=== PATIENT | female | born 1965 | race Hispanic/Latino ===

== ENCOUNTER 2017-10-22 06:55 | Emergency (ER) | payer OTHER ==
--- NOTE | 2017-10-22 07:33 | EKG ---
Test Date: 2017-10-22 Test Time: 07:13:45 Intermediate Teacher: GRAYSON MEASUREMENT RESULTS: Intervals: Rate: 65 RI: 148 QRSD: 86 QT: 452 QTc: 470 [place]: P: 52 RI: 148 QRS: 35 T: 52 INTERPRETIVE STATEMENTS: Normal sinus rhythm Normal ECG Compared to ECG 01/21/2000 17:22:00 No significant changes Electronically Signed On 10-22-17 07:32:16 CDT by Brent Ram
[2017-10-22 07:50] LABS: Absolute Lymphocytes (CBC) 2.4 K/uL (0.7-4.9); Absolute Monocytes 0.6 K/uL (0.1-1.3); Absolute Neutrophil 3.5 K/uL (1.8-8.0); Basophils % 1.1 % (0-1.3); Eosinophils % 11.2 % (0-4.4); Hematocrit 39.2 % (36.0-45.0); Lymphocytes % 32.3 % (15.3-44.8); MCH 32.4 pg (27.0-35.0); MCV 92.1 fL (80-100); MPV 9.2 fL (7.6-11.3); Monocytes % 7.9 % (3.3-12.3); RBC Red Blood Cell Count 4.25 M/uL (3.86-4.86)
[2017-10-22 07:55] LABS: Protime INR 1.12
[2017-10-22 08:03] LABS: ALT/SGPT 84 U/L (12-78); AST/SGOT 45 U/L (15-37); Albumin 3.7 g/dL (3.4-5.0); Alkaline Phosphatase 162 U/L (45-117); BUN Blood Urea Nitrogen 13 mg/dL (7-18); Bicarbonate 27 mmol/L (21-32); Bilirubin Direct 0.1 mg/dL (0-0.2); Bilirubin Total 0.4 mg/dL (0.2-1.0); CKMB Creatine Kinase MB < 1.0 ng/mL (0.3-3.6); Creatine Phosphokinase 47 U/L (26-192); Glucose Level 101 mg/dL (74-106); Magnesium 2.3 mg/dL (1.8-2.4); NT PRO-BNP 229 pg/mL (<125); Potassium 3.7 mmol/L (3.5-5.1); Protein, Total 7.6 g/dL (6.4-8.2); Sodium Level 139 mmol/L (136-145)
--- NOTE | 2017-10-22 08:57 | RAD REPORT ---
EXAM DESCRIPTION: RAD - Chest Single View - 10/22/2017 7:32 am CLINICAL HISTORY: CHEST PAIN Chest pain. COMPARISON: Chest Pa And Lat (2 Views) dated 10/11/2016 FINDINGS: Portable technique limits examination quality. The lungs are grossly clear. The heart is normal in size. No displaced fractures. IMPRESSION: No acute intrathoracic process suspected.
--- NOTE | 2017-10-22 09:03 | EDPHYS ---
Physician Documentation [facility] Name: Ofe Patel Age: 51 yrs Sex: Female : 1965 Arrival Date: 10/22/2017 Time: 06:57 Bed 5 Private MD: Merissa Nicholson ED Physician Viral Braga HPI: 10/22 08:00 This 51 yrs old Female presents to ER via Ambulatory with complaints of Chest pm1 Pain. 08:00 The patient or guardian reports chest pain that is located primarily in the anterior pm1 aspect of left upper chest. Onset: 3 day(s) ago, On and off for 2 years. The pain radiates to left back. Associated signs and symptoms: Pertinent negatives: abdominal pain, cough, dizziness, nausea, shortness of breath, vomiting. The chest pain is described as a pressure. Duration: The patient or guardian reports a single episode, that is still ongoing. Modifying factors: the symptoms are aggravated by deep breath, palpation of area. Severity of pain: in the emergency department the pain is actually worse. The patient has experienced similar episodes in the past, multiple times, and the symptoms today are exactly the same, Has seen many specialist and different PCP over the past 2 years and has not gotten an answer for her chest pain. Patient with constant chest pain for 3 days. Patient with left back pain that is tender on palpation. 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 - Hysterectomy sv Historical: - Allergies: 07:14 NKA; sv - Home Meds: 07:14 aripiprazole 5 mg Oral tab 1 tab once daily [Active]; [place] Thyroid 120 mg oral tab sv daily [Active]; duloxetine 60 mg Oral cpDR 1 cap once daily [Active]; Linzess 290 mcg oral cap once daily [Active]; pantoprazole 40 mg Oral TbEC 1 tab once daily [Active]; Probiotic oral oral [Active]; losartan-hydrochlorothiazide 100-12.5 mg oral tab 1 tab once daily [Active]; Avalide 150-12.5 mg oral tab 1 tab once daily [Active]; WelChol 625 mg oral tab 6 tabs once daily [Active]; diclofenac sodium 75 mg oral TbEC 1 tab 2 times per day [Active]; - PMHx: 07:14 Hormone Replacement; Hypertension; Hypothyroidism; GERD; Depression; sv - PSHx: 07:14 Hysterectomy; sv - Immunization history:: Adult Immunizations up to date. - Social history:: Smoking status: Patient/guardian denies using tobacco, Patient/guardian denies using alcohol. - Ebola Screening: : No symptoms or risks identified at this time. ROS: 08:00 Constitutional: Negative for fever, chills, and weight loss, Eyes: Negative for injury, pm1 pain, redness, and discharge, ENT: Negative for injury, pain, and discharge, Neck: Negative for injury, pain, and swelling. 08:00 Respiratory: Negative for shortness of breath, cough, wheezing, and pleuritic chest pain, Abdomen/GI: Negative for abdominal pain, nausea, vomiting, diarrhea, and constipation. 08:00 : Negative for injury, bleeding, discharge, and swelling, MS/Extremity: Negative for injury and deformity, Skin: Negative for injury, rash, and discoloration, Neuro: Negative for headache, weakness, numbness, tingling, and seizure. 08:00 Cardiovascular: Positive for chest pain, Negative for edema, orthopnea, palpitations, paroxysmal nocturnal dyspnea. 08:00 Back: Positive for of the left scapular area and left subscapular area, Pain. Exam: 07:21 Constitutional: This is a well developed, well nourished patient who is awake, alert, pm1 and in no acute distress. Head/Face: Normocephalic, atraumatic. Eyes: Pupils equal round and reactive to light, extra-ocular motions intact. Lids and lashes normal. Conjunctiva and sclera are non-icteric and not injected. Cornea within normal limits. Periorbital areas with no swelling, redness, or edema. ENT: Nares patent. No nasal discharge, no septal abnormalities noted. Tympanic membranes are normal and external auditory canals are clear. Oropharynx with no redness, swelling, or masses, exudates, or evidence of obstruction, uvula midline. Mucous membranes moist. Neck: Trachea midline, no thyromegaly or masses palpated, and no cervical lymphadenopathy. Supple, full range of motion without nuchal rigidity, or vertebral point tenderness. No Meningismus. 07:21 Cardiovascular: Regular rate and rhythm with a normal S1 and S2. No gallops, murmurs, or rubs. Normal PMI, no JVD. No pulse deficits. Respiratory: Lungs have equal breath sounds bilaterally, clear to auscultation and percussion. No rales, rhonchi or wheezes noted. No increased work of breathing, no retractions or nasal flaring. Abdomen/GI: Soft, non-tender, with normal bowel sounds. No distension or tympany. No guarding or rebound. No evidence of tenderness throughout. 07:21 Skin: Warm, dry with normal turgor. Normal color with no rashes, no lesions, and no evidence of cellulitis. MS/ Extremity: Pulses equal, no cyanosis. Neurovascular intact. Full, normal range of motion. 07:21 Chest/axilla: Inspection: normal, Palpation: tenderness, that is mild, of the mid-sternal area and left breast, that totally reproduces the patient's complaints. 07:21 NSR 07:21 Back: normal spinal alignment noted, muscle spasm, is appreciated in the left scapular area and left subscapular area. 07:21 Neuro: Orientation: is normal, Motor: is normal, moves all fours. Vital Signs: 07:00 BP 170 / 100; Pulse 86; Resp 18; Temp 98.2(O); Pulse Ox 99% on R/A; Weight 87.09 kg; sv Height 5 ft. 4 in. (162.56 cm); 08:03 BP 128 / 90; Pulse 75; Resp 10 S; Pulse Ox 97% on R/A; sg 09:00 BP 140 / 86; Pulse 62; Resp 16; Pulse Ox 99% on R/A; sg 07:00 Body Mass Index 32.96 (87.09 kg, 162.56 cm) sv MDM: 07:13 Patient medically screened. pm1 08:59 Data reviewed: vital signs, lab test result(s), EKG, radiologic studies. pm1 08:59 Differential diagnosis: acute myocardial infarction, chest wall pain, pulmonary pm1 embolus, unstable angina. 08:59 Counseling: I had a detailed discussion with the patient and/or guardian regarding: the pm1 historical points, exam findings, and any diagnostic results supporting the discharge/admit diagnosis, lab results, radiology results, the need for outpatient follow up, to return to the emergency department if symptoms worsen or persist or if there are any questions or concerns that arise at home. 10/22 07:14 Order name: Basic Metabolic Panel; Complete Time: 08:07 pm1 08/06 07:14 Order name: CBC with Diff; Complete Time: 08:07 pm1 10/22 07:14 Order name: Ckmb; Complete Time: 08:07 pm1 10/22 07:14 Order name: CPK; Complete Time: 08:07 pm1 10/22 07:14 Order name: LFT's; Complete Time: 08:07 pm1 10/22 07:14 Order name: Magnesium; Complete Time: 08:07 pm1 10/22 07:14 Order name: NT PRO-BNP; Complete Time: 08:07 pm1 10/22 07:14 Order name: PT-INR; Complete Time: 08:07 pm1 10/22 07:14 Order name: Ptt, Activated; Complete Time: 08:07 pm1 10/22 07:14 Order name: Troponin (emerg Dept Use Only); Complete Time: 08:07 pm1 10/22 07:14 Order name: XRAY Chest (1 view); Complete Time: 08:59 pm1 10/22 07:09 Order name: EKG; Complete Time: 07:10 sv 10/22 07:09 Order name: EKG - Nurse/Tech; Complete Time: 07:25 sv 10/22 07:14 Order name: Cardiac monitoring; Complete Time: 07:24 pm1 10/22 07:14 Order name: IV Saline Lock; Complete Time: 07:24 pm1 10/22 07:14 Order name: Labs collected and sent; Complete Time: 07:24 pm1 10/22 07:14 Order name: O2 Per Protocol; Complete Time: 07:24 pm1 10/22 07:14 Order name: O2 Sat Monitoring; Complete Time: 07:24 pm1 Administered Medications: 09:42 CANCELLED (Physician Discretion): Flexeril 10 mg PO once pm1 09:48 Drug: TORadol 30 mg Route: IVP; Site: right antecubital; sg 10:06 Follow up: Response: No adverse reaction; Pain is unchanged, physician notified sg 10:00 Drug: [place] 5 mg-325 mg 1 tabs Route: PO; sg Disposition: 10/22/17 09:03 Discharged to Home. Impression: Chest pain, unspecified. - Condition is Stable. - Discharge Instructions: Nonspecific Chest Pain, Chest Wall Pain. - Work release form, Medication Reconciliation Form, Thank You Letter, Antibiotic Education, Prescription Opioid Use form. - Follow up: Emergency Department; When: As needed; Reason: Worsening of condition. Follow up: Private Physician; When: 2 - 3 days; Reason: Recheck today's complaints, Continuance of care, Re-evaluation by your physician. - Problem is new. - Symptoms have improved. Addendum: 10/25/2017 19:04 Co-signature as Attending Physician, Viral murray Signatures: Dispatcher [employer] EDElla Muñoz RN RN sv Gay, Steven, RN RN sg Lam, Pin, MD MD pkl Marinas, Patrick, ACADEMY DIRECTOR ACADEMY DIRECTOR pm1 Corrections: (The following items were deleted from the chart) 10/22 09:42 09:41 Flexeril 10 mg PO once ordered. pm1 pm1 10:15 09:03 10/22/2017 09:03 Discharged to Home. Impression: Chest pain, unspecified. sg Condition is Stable. Forms are Medication Reconciliation Form, Thank You Letter, Antibiotic Education, Prescription Opioid Use. Follow up: Emergency Department; When: As needed; Reason: Worsening of condition. Follow up: Private Physician; When: 2 - 3 days; Reason: Recheck today's complaints, Continuance of care, Re-evaluation by your physician. Problem is new. Symptoms have improved. pm1
--- NOTE | 2017-10-22 09:03 | ER ---
Nurse's Notes [facility] Name: Ofe Patel Age: 51 yrs Sex: Female : 1965 Arrival Date: 10/22/2017 Time: 06:57 Bed 5 Private MD: Merissa Nicholson Diagnosis: Chest pain, unspecified Presentation: 10/22 07:00 Presenting complaint: Patient states: constant left sided chest pain with radiation to sv in between shoulder blades x 2 days. Worse with deep breathing. Denies cough. Transition of care: patient was not received from another setting of care. Onset of symptoms was October 20, 2017. Initial Sepsis Screen: Does the patient meet any 2 criteria? No. Patient's initial sepsis screen is negative. Does the patient have a suspected source of infection? No. Patient's initial sepsis screen is negative. Care prior to arrival: None. 07:00 Method Of Arrival: Ambulatory sv 07:00 Acuity: INGRID 3 sv 07:31 Risk Assessment: Do you want to hurt yourself or someone else? Patient reports no sv desire to harm self or others. 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 sv Historical: - Allergies: 07:14 NKA; sv - Home Meds: 07:14 aripiprazole 5 mg Oral tab 1 tab once daily [Active]; [place] Thyroid 120 mg oral tab sv daily [Active]; duloxetine 60 mg Oral cpDR 1 cap once daily [Active]; Linzess 290 mcg oral cap once daily [Active]; pantoprazole 40 mg Oral TbEC 1 tab once daily [Active]; Probiotic oral oral [Active]; losartan-hydrochlorothiazide 100-12.5 mg oral tab 1 tab once daily [Active]; Avalide 150-12.5 mg oral tab 1 tab once daily [Active]; WelChol 625 mg oral tab 6 tabs once daily [Active]; diclofenac sodium 75 mg oral TbEC 1 tab 2 times per day [Active]; - PMHx: 07:14 Hormone Replacement; Hypertension; Hypothyroidism; GERD; Depression; sv - PSHx: 07:14 Hysterectomy; sv - Immunization history:: Adult Immunizations up to date. - Social history:: Smoking status: Patient/guardian denies using tobacco, Patient/guardian denies using alcohol. - Ebola Screening: : No symptoms or risks identified at this time. Screenin:31 Abuse screen: Denies threats or abuse. Denies injuries from another. Nutritional sv screening: No deficits noted. Tuberculosis screening: No symptoms or risk factors identified. Fall Risk None identified. Assessment: 07:20 General: Appears in no apparent distress. comfortable, well groomed, well developed, sg well nourished, Behavior is cooperative, appropriate for age, anxious. Pain: Complains of pain in left subscapular area and left scapular area and left breast and mid-sternal area Pain does not radiate. Quality of pain is described as sharp, stabbing. Neuro: Level of Consciousness is awake, alert, obeys commands, Oriented to person, place, time, situation, Battery Charger are equal bilaterally Moves all extremities. Full function Gait is steady, Speech is normal, Facial symmetry appears normal. Cardiovascular: Heart tones S1 S2 present Capillary refill is brisk in bilateral fingers Patient's skin is warm and dry. Chest pain is located in anterior chest wall substernal area. Respiratory: Reports pain with respiration Airway is patent Respiratory effort is even, unlabored, Respiratory pattern is regular, symmetrical, Breath sounds are clear. GI: Abdomen is round non-distended, Bowel sounds present X 4 quads. : No signs and/or symptoms were reported regarding the genitourinary system. EENT: No signs and/or symptoms were reported regarding the EENT system. Derm: Skin is intact, is healthy with good turgor, Skin is pink, warm \T\ dry. Musculoskeletal: Circulation, motion, and sensation intact. Range of motion: intact in all extremities, Swelling absent. 08:20 Reassessment: Patient appears in no apparent distress at this time. Patient and/or sg family updated on plan of care and expected duration. Pain level reassessed. Patient is alert, oriented x 3, equal unlabored respirations, skin warm/dry/pink. Patient states symptoms have not improved. 09:20 Reassessment: Patient appears in no apparent distress at this time. Patient and/or sg family updated on plan of care and expected duration. Pain level reassessed. Patient is alert, oriented x 3, equal unlabored respirations, skin warm/dry/pink. Patient states symptoms have not improved. 10:20 Reassessment: Patient appears in no apparent distress at this time. Patient and/or sg family updated on plan of care and expected duration. Pain level reassessed. Patient is alert, oriented x 3, equal unlabored respirations, skin warm/dry/pink. pt home medications discovered left in room on counter, meds given to Deborah MORELAND Charge Nurse. Vital Signs: 07:00 BP 170 / 100; Pulse 86; Resp 18; Temp 98.2(O); Pulse Ox 99% on R/A; Weight 87.09 kg; sv Height 5 ft. 4 in. (162.56 cm); 08:03 BP 128 / 90; Pulse 75; Resp 10 S; Pulse Ox 97% on R/A; sg 09:00 BP 140 / 86; Pulse 62; Resp 16; Pulse Ox 99% on R/A; sg 07:00 Body Mass Index 32.96 (87.09 kg, 162.56 cm) sv ED Course: 06:57 Patient arrived in ED. am2 06:57 Merissa Nicholson MD is Private Physician. am2 07:06 Arm band placed on right wrist. Patient placed in an exam room, on a stretcher. sv 07:11 Triage completed. sv 07:13 Len Barahona NP is PHCP. pm1 07:13 Viral Braga MD is Attending Physician. pm1 07:20 school lunch monitor on. Pulse ox on. NIBP on. sg 07:20 Initial lab(s) drawn, by me, sent to lab. Inserted saline lock: 20 gauge in right sg antecubital area, using aseptic technique. Blood collected. Patient maintains SpO2 saturation greater than 95% on room air. 07:20 No provider procedures requiring assistance completed. sg 07:29 X-ray completed. Portable x-ray completed in exam room. Patient tolerated procedure kw well. 07:29 XRAY Chest (1 view) In Process Unspecified. EDMS 07:31 Dwaine Vargas, RN is Primary Nurse. sg 07:31 Patient has correct armband on for positive identification. Placed in gown. Bed in low sv position. Door closed. Head of bed elevated. 08:19 EKG done, by apprentice instrument technician. reviewed by Len Barahona NP. at1 10:15 IV discontinued, intact, bleeding controlled, No redness/swelling at site. Pressure sg dressing applied. Administered Medications: 09:42 CANCELLED (Physician Discretion): Flexeril 10 mg PO once pm1 09:48 Drug: TORadol 30 mg Route: IVP; Site: right antecubital; sg 10:06 Follow up: Response: No adverse reaction; Pain is unchanged, physician notified sg 10:00 Drug: [place] 5 mg-325 mg 1 tabs Route: PO; sg Outcome: 09:03 Discharge ordered by . pm1 10:10 Discharged to home ambulatory, with family. sg 10:10 Condition: stable 10:10 Discharge instructions given to patient, Instructed on discharge instructions, follow up and referral plans. safety practices, Demonstrated understanding of instructions, follow-up care. 10:15 Patient left the ED. sg Signatures: Dispatcher [employer] EDElla Muñoz RN RN sv Gay, Steven, RN RN sg Tanya Arrington Amanda, timber framer EKG Tat1 Len Barahona NP SPLASH LINE OPERATOR pm1 Rosanna Correa am2
[2017-10-22] MEDS ORDERED: KETOROLAC 30 MG/ML INJ ONE (09:47)
[2017-10-22] MEDS ORDERED: HYDROCODONE/APAP 5/325 MG TAB ONE (10:07)
[2017-10-22 10:19] VITALS: TEMP 98.2
[2017-10-22 10:21] VITALS: BP 140/86; O2SAT 99
== END 2017-10-22 10:15 | disposition home or self-care (01) ==
LOC: ER 06:55
DX: R07.9 Chest pain, unspecified (principal); I10 Essential (primary) hypertension; E03.9 Hypothyroidism, unspecified; K21.9 Gastro-esophageal reflux disease without esophagitis
CPT/HCPCS: 36415; 71045; 80048; 80076; 82550; 82553; 83735; 83880; 84484; 85025; 85610; 85730; 93005; 96374; 99285

== ENCOUNTER 2017-12-10 08:10 | Day surgery (SDC) | payer OTHER ==
--- NOTE | 2017-12-06 14:48 | RAD REPORT ---
EXAM DESCRIPTION: Betina Hester (2 Views)12/06/2017 2:41 pm CLINICAL HISTORY: Hypertension/preop exam for hernia surgery COMPARISON: August 2017 FINDINGS: The lungs appear clear of acute infiltrate. The heart is normal size IMPRESSION: No acute abnormalities displayed
[2017-12-06 15:24] LABS: Absolute Lymphocytes (CBC) 1.9 K/uL (0.7-4.9); Absolute Monocytes 0.7 K/uL (0.1-1.3); Absolute Neutrophil 3.7 K/uL (1.8-8.0); Basophils % 0.7 % (0-1.3); Eosinophils % 5.8 % (0-4.4); Hematocrit 34.3 % (36.0-45.0); Lymphocytes % 27.7 % (15.3-44.8); MCH 31.7 pg (27.0-35.0); MCV 90.9 fL (80-100); MPV 9.2 fL (7.6-11.3); Monocytes % 10.5 % (3.3-12.3); RBC Red Blood Cell Count 3.77 M/uL (3.86-4.86)
[2017-12-06 15:34] LABS: Potassium 4.1 mmol/L (3.5-5.1)
--- NOTE | 2017-12-07 06:56 | EKG ---
Test Date: 2017-12-06 Test Time: 14:51:58 Lap Layer: LUPILLO MEASUREMENT RESULTS: Intervals: Rate: 72 MD: 148 QRSD: 88 QT: 418 QTc: 457 [place]: P: 61 MD: 148 QRS: 39 T: 37 INTERPRETIVE STATEMENTS: Normal sinus rhythm Normal ECG Compared to ECG 10/22/2017 07:13:45 No significant changes Electronically Signed On 12-07-17 06:54:39 CDT by Azam El
[2017-12-10] MEDS ORDERED: LIDOCAINE 2% MPF 5 ML VIAL ONE (08:30)
[2017-12-10] MEDS ORDERED: ROCURONIUM 50 MG/5 ML VIAL IV ONE (08:30)
[2017-12-10] MEDS ORDERED: FENTANYL CITR 100 MCG/2 ML ONE (08:30)
[2017-12-10] MEDS ORDERED: MIDAZOLAM HCL 2 MG/2 ML INJ ONE (08:30)
[2017-12-10] MEDS ORDERED: PROPOFOL 200 MG/20 ML VIAL IV ONE (08:30)
[2017-12-10] MEDS ORDERED: Ringers Lactate 1,000 ML IV ONE (08:40)
[2017-12-10] MEDS ORDERED: CEFAZOLIN/SWI 1gm 1 GM/10 ML SYR ONE (08:40)
[2017-12-10] MEDS ORDERED: ONDANSETRON HCL 40 MG/20 ML VIAL ONE (09:41)
[2017-12-10] MEDS ORDERED: GLYCOPYRROLATE 0.2 MG/ML SYR ONE (10:14)
[2017-12-10] MEDS ORDERED: KETOROLAC 30 MG/ML INJ ONE (10:14)
[2017-12-10] MEDS ORDERED: NEOSTIGMINE 1 MG/ML -5 ML SYRINGE ONE (10:15)
[2017-12-10] MEDS: MORPHINE 4 MG/ML SYR ONE ×2 (10:40→10:44)
--- NOTE | 2017-12-10 10:49 | P.BOP ---
Preoperative diagnosis: incarcerated tender ventral hernia Postoperative diagnosis: same Primary procedure: Open repair of incarcerated tender ventral hernia Deputy Sheriff Lieutenant: Sara Weathers) Estimated blood loss: < 10cc Specimen: hernia sac Findings: umbilical and ventral hernia repair as one defect Anesthesia: General Complications: None Transferred to: Recovery Room Condition: Good
[2017-12-10] MEDS ORDERED: MEPERIDINE HCL 50 MG/ML AMP ONE (10:53)
[2017-12-10] MEDS ORDERED: CODEINE 30MG/APAP 300MG TAB ONE (11:45)
[2017-12-10] MEDS ORDERED: CYCLOPENTOLATE 1% OPTH 2 ML ONE (12:18)
[2017-12-10] MEDS ORDERED: BUPIVACAINE 0.25% PF 10 ML VIAL ONE (12:18)
[2017-12-10] MEDS ORDERED: TETRACAINE HCL 0.5% 2ML OPTH ONE (12:19)
[2017-12-10] MEDS ORDERED: PHENYLEPHRINE 10% OPTH 5ML ONE (12:19)
[2017-12-10] MEDS ORDERED: NA CHLORIDE 0.9% 0 ML ONE (12:19)
[2017-12-10 15:33] VITALS: BP 103/65; TEMP 98; O2SAT 98
--- NOTE | 2017-12-10 21:30 | DS ---
Date of Discharge: 12/10/2017 Diagnosis: Incarcerated tender ventral hernia. Procedure: Open repair of an incarcerated tender ventral hernia. Disposition: Home. Activity: As tolerated. No heavy lifting. Followup: Follow up in my office in 1 week. Call for appointment on [phone]. Keep the area dry fo r 48 hours, then may shower. Keep Steri-Strips intact. ESSENCE/ANUJA Voice ID: [id number] Report ID: [id number]
--- NOTE | 2017-12-10 22:24 | OP ---
Date of Procedure: 12/10/2017 Surgeon: Yasmany Mcgowan MD Chocolate Packer: DOT Ureña. Preoperative Diagnosis: Incarcerated tender ventral hernia. Postoperative Diagnosis: Incarcerated tender ventral hernia. Procedure: Open repair of an incarcerated tender ventral hernia. Specimen: Hernia sac. Findings: The patient has 2 hernias, umbilical and ventral hernia just cephalad to the previous one. All of them were put in one defect and closed as one defect. Anesthesia: General plus local. Indications: This is a case of a 52-year-old patient who comes to us with an incarcerated ventral he rnia. Benefits, alternatives, and risks of repair fully explained which include but are not limited to infection, bleeding, damage to adjacent structures, anesthesia complication, recurrence, [place], and e earnest . She also understands this may not relieve her symptoms. She might need more than one cam gical intervention. The pros and cons of mesh placement were also discussed with her in case needs t o be done. She understands the importance of losing weight and no heavy lifting. She signed a conse nt. Description Of Procedure: The patient was brought to the operating room, placed in supine position. Anesthesia was done without complication. Abdominal area was prepped and draped in usual sterile fa shion. A ventral incision was made on the skin. Incision was carried down to fascia. We noticed tw o defects, one ventral, one umbilical. In between, there is a bridge of fascia which still is not st reuben as needed so we proceeded to make this into one defect. Hernia sac was removed. The omentum wa s released and then eventually reduced, re-inspected making sure it was viable and no bleeding. The fascia edges were cleaned. We noticed that we can close this without tension and without having to u se mesh, so we proceeded to close the defects with #1 Prolene in a [id number] fashion multiple t imes. The area was irrigated. A 3-0 chromic was used for the subcutaneous incision and then subcuti cular closure with 3-0 chromic and Steri-Strips on top. Sponge count and instrument counts were brayan ect. The patient tolerated the procedure well. [facility] ESSENCE/ANUJA Voice ID: [id number] Report ID: [id number]
== END 2017-12-10 13:45 | disposition home or self-care (01) ==
LOC: OR 08:10
PROVIDERS: ATTEND Surgery
PROC: 0WQF0ZZ Repair Abdominal Wall, Open Approach (ICD-10-PCS; principal; 2017-12-10 10:00)
DX: K43.6 Other and unspecified ventral hernia with obstruction, without gangrene (principal); K42.9 Umbilical hernia without obstruction or gangrene; I10 Essential (primary) hypertension; E07.9 Disorder of thyroid, unspecified; Z85.9 Personal history of malignant neoplasm, unspecified; Z90.710 Acquired absence of both cervix and uterus; Z82.49 Family history of ischemic heart disease and other diseases of the circulatory system; Z83.3 Family history of diabetes mellitus; Z82.3 Family history of stroke
CPT/HCPCS: 36415; 71046; 80048; 85025; 88302; 93005; J0690; J2175; J2250; J2405; J2710; J3010

== ENCOUNTER 2018-12-30 13:29 | Emergency (ER) | payer BC ==
[2018-12-30] MEDS ORDERED: LORAZEPAM 1 MG TABLET ONE (14:32)
--- NOTE | 2018-12-30 15:07 | EDPHYS ---
Physician Documentation [facility] Name: Ofe Patel Age: 53 yrs Sex: Female : 1965 Arrival Date: 12/30/2018 Time: 13:32 Bed 25 Private MD: ED Physician Rena Garrido HPI: 12/30 14:54 This 53 yrs old Female presents to ER via EMS with complaints of Dizziness. ma2 14:54 The patient presents with dizziness, feeling faint. Onset: The symptoms/episode ma2 began/occurred gradually. 15:04 Associated signs and symptoms: Pertinent positives: anxius , Pertinent negatives: ma2 ataxia, combativeness, diaphoresis, head injury. Severity of symptoms: At their worst the symptoms were very mild in the emergency department the symptoms have resolved. The patient has not experienced similar symptoms in the past. had anxiety while talking to her clinical informatics educator about a surgery, syx resolved . 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 - Social history:: Smoking status: Patient/guardian denies using tobacco, Patient/guardian denies using alcohol, street drugs, The patient lives with family. - Ebola Screening: : Patient denies travel to an Ebola-affected area in the 21 days before illness onset. - Family history:: not pertinent. ROS: 15:04 Constitutional: Negative for fever, chills, and weight loss. ma2 15:04 All other systems are negative. Exam: 15:04 Constitutional: This is a well developed, well nourished patient who is awake, alert, ma2 and in no acute distress. Head/Face: Normocephalic, atraumatic. Eyes: Pupils equal round and reactive to light, extra-ocular motions intact. Lids and lashes normal. Conjunctiva and sclera are non-icteric and not injected. Cornea within normal limits. Periorbital areas with no swelling, redness, or edema. ENT: Nares patent. No nasal discharge, no septal abnormalities noted. Tympanic membranes are normal and external auditory canals are clear. Oropharynx with no redness, swelling, or masses, exudates, or evidence of obstruction, uvula midline. Mucous membranes moist. Neck: Trachea midline, no thyromegaly or masses palpated, and no cervical lymphadenopathy. Supple, full range of motion without nuchal rigidity, or vertebral point tenderness. No Meningismus. Chest/axilla: Normal chest wall appearance and motion. Nontender with no deformity. No lesions are appreciated. Cardiovascular: Regular rate and rhythm with a normal S1 and S2. No gallops, murmurs, or rubs. Normal PMI, no JVD. No pulse deficits. Respiratory: Lungs have equal breath sounds bilaterally, clear to auscultation and percussion. No rales, rhonchi or wheezes noted. No increased work of breathing, no retractions or nasal flaring. Abdomen/GI: Soft, non-tender, with normal bowel sounds. No distension or tympany. No guarding or rebound. No evidence of tenderness throughout. Back: No spinal tenderness. No costovertebral tenderness. Full range of motion. Skin: Warm, dry with normal turgor. Normal color with no rashes, no lesions, and no evidence of cellulitis. MS/ Extremity: Pulses equal, no cyanosis. Neurovascular intact. Full, normal range of motion. Neuro: Awake and alert, GCS 15, oriented to person, place, time, and situation. Cranial nerves II-XII grossly intact. Motor strength 5/5 in all extremities. Sensory grossly intact. Cerebellar exam normal. Normal gait. Vital Signs: 13:39 BP 134 / 77; Pulse 64; Resp 18; Pulse Ox 96% on R/A; aj1 14:54 BP 120 / 76; Pulse 70; Resp 16; Temp 98.0(O); Pulse Ox 100% ; lt1 15:28 BP 125 / 86; Pulse 74; Resp 18; Pulse Ox 100% on R/A; aj1 MDM: 13:47 Patient medically screened. ma2 15:04 Differential diagnosis: anxiety reaction l;ikely, unlikey arrythmia or electrolyte ma2 abnormality or dehydration . Data reviewed: vital signs, nurses notes. Counseling: I had a detailed discussion with the patient and/or guardian regarding: the historical points, exam findings, and any diagnostic results supporting the discharge/admit diagnosis, the presence of at least one elevated blood pressure reading (>120/80) during this emergency department visit, the need for outpatient follow up. Response to treatment: the patient's symptoms have markedly improved after treatment. 12/30 14:18 Order name: EKG - Nurse/Tech; Complete Time: 14:42 ma2 Administered Medications: 14:36 Drug: Ativan 1 mg Route: PO; aj 15:29 Follow up: Response: No adverse reaction aj1 Disposition: 12/30/18 15:06 Discharged to Home. Impression: Anxiety disorder, unspecified. - Condition is Stable. - Discharge Instructions: Generalized Anxiety Disorder. - Prescriptions for Ativan 0.5 mg Oral Tablet - take 1 tablet by ORAL route every 8 hours As needed; 20 tablet. - Medication Reconciliation Form, Thank You Letter, Antibiotic Education, Prescription Opioid Use form. - Follow up: Private Physician; When: Tomorrow; Reason: Continuance of care. Signatures: Fabiola Hill RN RN aj1 Rena Garrido MD MD ma2 Corrections: (The following items were deleted from the chart) 16:09 15:06 12/30/2018 15:06 Discharged to Home. Impression: Anxiety disorder, unspecified. aj1 Condition is Stable. Forms are Medication Reconciliation Form, Thank You Letter, Antibiotic Education, Prescription Opioid Use. Follow up: Private Physician; When: Tomorrow; Reason: Continuance of care. ma2
--- NOTE | 2018-12-30 15:07 | ER ---
Nurse's Notes [facility] Name: Ofe Patel Age: 53 yrs Sex: Female : 1965 Arrival Date: 12/30/2018 Time: 13:32 Bed 25 Private MD: Diagnosis: Anxiety disorder, unspecified Presentation: 12/30 13:32 Presenting complaint: EMS states: Patient was at a pre-op appointment at Dr. Schwartz's aj office when she started hyperventilating, feeling dizzy, and nauseous. Office staff report that the patient was hypotensive at that time, but BP was normal upon EMS arrival, and is 137/77 upon arrival to ER. Orthostatic vital signs were obtained by EMS and were negative. FSBS 122. Patient reports feeling better at this time, but she is still having some dizziness. Transition of care: patient was not received from another setting of care. Onset of symptoms was December 30, 2018. Risk Assessment: Do you want to hurt yourself or someone else? Patient reports no desire to harm self or others. Initial Sepsis Screen: Does the patient meet any 2 criteria? No. Patient's initial sepsis screen is negative. Does the patient have a suspected source of infection? No. Patient's initial sepsis screen is negative. Care prior to arrival: None. 13:32 Method Of Arrival: EMS: [place] [id number] 13:32 Acuity: INGRID 3 aj1 Triage Assessment: 13:39 General: Appears in no apparent distress. comfortable, Behavior is cooperative, aj1 appropriate for age, anxious. Pain: Denies pain. 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 - Social history:: Smoking status: Patient/guardian denies using tobacco, Patient/guardian denies using alcohol, street drugs, The patient lives with family. - Ebola Screening: : Patient denies travel to an Ebola-affected area in the 21 days before illness onset. - Family history:: not pertinent. Screenin:30 Abuse screen: Denies threats or abuse. Denies injuries from another. Nutritional aj1 screening: No deficits noted. Tuberculosis screening: No symptoms or risk factors identified. 15:29 Fall Risk None identified. aj1 Assessment: 13:30 General: Appears in no apparent distress. comfortable, Behavior is calm, cooperative, aj1 appropriate for age. Pain: Denies pain. Neuro: Level of Consciousness is awake, alert, obeys commands, Oriented to person, place, time, situation, Moves all extremities. Full function Speech is normal, Facial symmetry appears normal, Reports dizziness. Cardiovascular: Patient's skin is warm and dry. Respiratory: Airway is patent Respiratory effort is even, unlabored, Respiratory pattern is regular, symmetrical. GI: No signs and/or symptoms were reported involving the gastrointestinal system. : No signs and/or symptoms were reported regarding the genitourinary system. EENT: No signs and/or symptoms were reported regarding the EENT system. Derm: No signs and/or symptoms reported regarding the dermatologic system. Skin is pink, warm \T\ dry. normal. Musculoskeletal: No signs and/or symptoms reported regarding the musculoskeletal system. Circulation, motion, and sensation intact. 14:30 Reassessment: Patient appears in no apparent distress at this time. No changes from aj1 previously documented assessment. Patient and/or family updated on plan of care and expected duration. Pain level reassessed. Patient is alert, oriented x 3, equal unlabored respirations, skin warm/dry/pink. 15:28 Reassessment: Patient appears in no apparent distress at this time. No changes from aj1 previously documented assessment. Patient and/or family updated on plan of care and expected duration. Pain level reassessed. Patient is alert, oriented x 3, equal unlabored respirations, skin warm/dry/pink. Vital Signs: 13:39 BP 134 / 77; Pulse 64; Resp 18; Pulse Ox 96% on R/A; aj1 14:54 BP 120 / 76; Pulse 70; Resp 16; Temp 98.0(O); Pulse Ox 100% ; lt1 15:28 BP 125 / 86; Pulse 74; Resp 18; Pulse Ox 100% on R/A; aj1 ED Course: 13:30 Patient has correct armband on for positive identification. Bed in low position. Call aj1 light in reach. 13:30 No provider procedures requiring assistance completed. aj1 13:32 Patient arrived in ED. aj1 13:35 Triage completed. aj1 13:39 Arm band placed on. aj1 13:47 Rena Garrido MD is Attending Physician. ma2 14:25 Fabiola Hill RN is Primary Nurse. aj1 14:44 EKG done, by psychology technician. reviewed by Rena Garrido MD. 3 15:29 Patient did not have IV access during this emergency room visit. aj1 Administered Medications: 14:36 Drug: Ativan 1 mg Route: PO; aj1 15:29 Follow up: Response: No adverse reaction aj Outcome: 15:06 Discharge ordered by . ks2 16:08 Discharged to home ambulatory. aj1 16:08 Condition: good 16:08 Discharge instructions given to patient, Instructed on discharge instructions, follow up and referral plans. no drinking with medication, no driving heavy equipment, medication usage, Demonstrated understanding of instructions, follow-up care, medications, Prescriptions given X 1. 16:09 Patient left the ED. aj1 Signatures: Fabiola Hill, RN RN aj1 Rena Garrido MD MD ks2 Capri Hazel 3 Corinna العلي [facility]
[2018-12-30 16:18] VITALS: TEMP 98; O2SAT 100
[2018-12-30 16:21] VITALS: BP 125/86
--- NOTE | 2018-12-31 05:33 | EKG ---
Test Date: 2018-12-30 Test Time: 14:38:56 Webbing Inspector: IMCHELET MEASUREMENT RESULTS: Intervals: Rate: 62 IA: 148 QRSD: 90 QT: 434 QTc: 440 Simpson: P: 52 IA: 148 QRS: 48 T: 49 INTERPRETIVE STATEMENTS: Normal sinus rhythm Nonspecific T wave abnormality Abnormal ECG Compared to ECG 12/06/2017 14:51:58 T-wave abnormality now present Electronically Signed On 12-31-18 05:32:15 CDT by Brent Ram
== END 2018-12-30 16:09 | disposition home or self-care (01) ==
LOC: ER 13:29
DX: F41.9 Anxiety disorder, unspecified (principal); I10 Essential (primary) hypertension; E03.9 Hypothyroidism, unspecified; F32.9 Major depressive disorder, single episode, unspecified
CPT/HCPCS: 93005; 99284

== ENCOUNTER 2019-03-04 11:10 | Day surgery (SDC) | payer BC ==
[2019-02-25 14:48] LABS: Absolute Lymphocytes (CBC) 2.2 K/uL (0.7-4.9); Basophils % 1.2 % (0-1.3); Hematocrit 37.5 % (36.0-45.0); Lymphocytes % 21.2 % (15.3-44.8); MPV 9.5 fL (7.6-11.3); RBC Red Blood Cell Count 4.11 M/uL (3.86-4.86)
[2019-02-25 14:53] LABS: Urine Appearance CLEAR; Urine Bilirubin NEGATIVE (NEG); Urine Blood NEGATIVE (NEG); Urine Color YELLOW; Urine Glucose NEGATIVE (NEG); Urine Protein NEGATIVE (NEG); Urine Specific Gravity 1.015 (1.005-1.030); Urine Urobilinogen 0.2 mg/dL (0.2-1.0); Urine pH 5.5 (5.0-7.0)
[2019-02-25 14:56] LABS: Urine Microscopic Reflex NO UMIC
--- OUTSIDE RECORDS SUMMARY | 2019-03-04 11:12 | XMS REPORT ---
:1965 [facility] Address [address] [place] [address] Dr. Hidalgo [address] [place] [id number] Care Team Providers Name Role Phone Unavailable Unavailable Unavailable Problems This patient has no known problems. Allergies, Adverse Reactions, Alerts This patient has no known allergies or adverse reactions. Medications This patient has no known medications.
[2019-03-04] MEDS ORDERED: SCOPOLAMINE HYDROBROMIDE PATCH TD ONE (11:28)
[2019-03-04] MEDS ORDERED: Ringers Lactate 1,000 ML IV ONE ×4 (11:29→16:26)
[2019-03-04] MEDS ORDERED: propofoL 200 MG/20 ML VIAL IV ONE (13:14)
[2019-03-04] MEDS ORDERED: LIDOCAINE 2% MPF 5 ML VIAL ONE (13:14)
[2019-03-04] MEDS ORDERED: FENTANYL CITR 250 MCG/5 ML ONE (13:14)
[2019-03-04] MEDS ORDERED: dexAMETHasone 10 MG/ML VIAL ONE (13:14)
[2019-03-04] MEDS ORDERED: MIDAZOLAM HCL 2 MG/2 ML INJ ONE (13:14)
[2019-03-04] MEDS ORDERED: ROCURONIUM 50 MG/5 ML VIAL IV ONE (13:17)
[2019-03-04] MEDS: BUPIVACAINE 0.25% PF 30 ML VIAL ONE ×2 (13:18→13:56)
[2019-03-04] MEDS ORDERED: GLYCOPYRROLATE 0.2 MG/ML SYR ONE (14:59)
[2019-03-04] MEDS ORDERED: ONDANSETRON 4 MG/2 ML VIAL ONE (14:59)
[2019-03-04] MEDS ORDERED: NEOSTIGMINE 1 MG/ML -10 ML VIAL ONE (14:59)
[2019-03-04] MEDS ORDERED: KETOROLAC 30 MG/ML INJ ONE (15:00)
[2019-03-04] MEDS: HYDROMORPHONE HCL 1 MG/ML INJ ONE ×2 (15:46→15:51)
[2019-03-04] MEDS: HYDROMORPHONE HCL 2 MG/ML inj ONE ×4 (15:59→16:15)
[2019-03-04] MEDS ORDERED: HYDROCODONE/APAP 5/325 MG TAB ONE (17:08)
[2019-03-04 17:54] VITALS: BP 130/56; TEMP 98.2; O2SAT 98
--- NOTE | 2019-03-05 06:23 | OP ---
Date of Procedure: 03/04/2019 Surgeon: Cheyenne Schwartz MD Credit Relationship Manager: Shannan Storey. Preoperative Diagnoses: Pelvic pain, mixed urinary incontinence, especially urgency and urgency inco ntinence. Postoperative Diagnoses: Pelvic pain, mixed urinary incontinence, especially urgency and urgency inc ontinence, and bowel adhesions. Procedures Performed: Diagnostic laparoscopy, bilateral salpingo-oophorectomy, extensive lysis of ad hesions which took more than 65% of the case, just 2/3rds, and then cystoscopy. Anesthesia: General. Specimens: Bilateral ovaries. Complications: No complications. Drains: No drains. Condition: Patient's condition is stable. Findings: Extensive bowel adhesions, sigmoid to the left lower quadrant, and left ovary and right ce cum to the anterior abdominal wall, right lateral wall. Appendix normal. No endometriosis found in the entire pelvic cavity on closed survey. Description Of Procedure: After informed consent was verified in the preop area, patient was brought to the OR, placed in supine fashion on the operating table. General anesthesia was given. Placed i n dorsal lithotomy position. No antibiotics were given. Pelvic exam was performed. No adnexal mass es were palpable. Abdomen prepped with ChloraPrep. Vulva, vagina, and perineum with Betadine, drape d in a sterile fashion. Arms were tucked by the side. SCDs were started. Time-out was done. Proce dure was then started. Constantino was placed to drain the bladder. A sponge stick was placed in the vagi na. This area was draped. A 1.5 cm supraumbilical incision was made with a scalpel. The patient gates d history of an umbilical hernia that was repaired with mesh and total laparoscopic hysterectomy with bilateral salpingectomy. So, due to the presence of the umbilical hernia mesh, an incision was made about 5 cm superior to the upper incision for the hernia repair. Fascia was incised directly, tagge d with 0 Vicryl sutures and peritoneum entered bluntly, S-retractors placed. Veto introduced. Sit e of entry was checked. Prior to this, preperitoneal insufflation was noted since the trocar was not advanced after Veto was advanced into the preperitoneal cavity. This was replaced after realizing this. Then, insufflation was unremarkable. Visualization was unremarkable as well. Upper abdomina l surface area was clear. No adhesions. Patient is status post hernia repair. No adhesions at the umbilicus as well. Five left lower quadrant and right lower quadrant suprapubic ports were then plac ed under direct vision after injecting the skin and fascia with Marcaine. The bowel adhesions were d ense and omental adhesions to the anterior abdominal wall as well on the left side. So, first the om ental adhesions were taken down with sharp dissection. Then, the bowel adhesions were taken down all the way from the natural attachment of the sigmoid to the level of the mid pelvis to the sidewall. Once this was freed up, then the left ovary was visualized, it was concealed underneath these adhesio ns, before they were taken down. Then, the peritoneum tethering the inferior aspect of the ovary was opened up. The external and inte rnal iliacs and the ureter were all visualized and the peritoneal dissection was performed to isolate the pedicle of the infundibulopelvic ligament and then taken down with LigaSure from the operative s maggy. Adhesions were taken down with sharp dissection. Once all these were taken down and the ovary was well visualized, there was no evidence of any endometriosis or abnormality. However, on discussi on with the patient in the office, she preferred to have 1 ovary left behind. Unless there was a pro blem with the ovary or if no other pathology was found, we decided that she should have right ovarian preservation. However, since there was no other pathology found other than the adhesions themselves , which were more dense on the left side where she has increased pain, I did not believe that leaving the right ovary in this patient with multiple adhesions would be the right thing, especially since s he is 53 and perimenopausal. I called her , Nicolas and spoke to him regarding this patient. He did relate to me the message that the patient definitely would like to have her both ovaries removed and that they had discussed this before the surgery and after my discussion in the office. So, once I had discussed this with her , I also offered the option of coming back another time to perfo rm this if there was any uncertainty about her wishes. He clearly decisively tell me that she would desire to have both ovaries removed in this scenario. So proceeded with removing the right ovary, wh ich was isolated on into IP by dissecting the lateral part of the broad ligament and isolating on the IP, and then taken down with the help of the LigaSure. The specimens were retrieved through the umb ilical port. No tubes were found. All the bowel adhesions were visualized again. No evidence of an y bleeding or any trauma to the adjacent bowel or lateral pelvic sidewall structures. Scope was polo bridget. After thorough irrigation and suction were performed, the trocars were removed under direct vis ion and local incisions of the fascia and skin were injected with Marcaine again. Then, the gas was desufflated. Fascia at the umbilicus closed with 0 Vicryl tag sutures, tied to each other and subcut aneous 0 Vicryl simple stitch followed by running subcuticular 4-0 Vicryl closure at the umbilical in cision and all the rest of the 3 with interrupted 4-0 Vicryl. Constantino was removed. The vaginal sponge was removed. Cystoscopy was performed with a 30-degree lens n ormal saline. The entire bladder was visualized with bladder base, dome, lateral sidewalls. No evid ence of any diverticula or tumors or stones. Slight trabeculations were seen. Urethroscopy was perf ormed with a 30-degree lens as well and there was no evidence of any diverticula or tumors. Scope wa s removed. Bladder was drained and instrument, needle, and sponge counts were correct at the end of the case. Patient tolerated the procedure well. She was recovered from the OR and taken to PACU in stable condition. She will be discharged home today with [place] 15 tablets, ibuprofen okay for 2 to 3 days for pain control. She has a 1-week followup with me. ROGER/ANUJA Voice ID: [id number] Report ID: [id number]
== END 2019-03-04 17:56 | disposition home or self-care (01) ==
LOC: OR 11:10
PROVIDERS: ATTEND Obstetrics & Gynecology
PROC: 0UT74ZZ Resection of Bilateral Fallopian Tubes, Percutaneous Endoscopic Approach (ICD-10-PCS; 2019-03-04)
PROC: 0UT24ZZ Resection of Bilateral Ovaries, Percutaneous Endoscopic Approach (ICD-10-PCS; principal; 2019-03-04 13:30)
DX: R10.2 Pelvic and perineal pain (principal); N39.41 Urge incontinence; K66.0 Peritoneal adhesions (postprocedural) (postinfection)
CPT/HCPCS: 85025; 36415; 86900; 86850; 86901; 88305; 81003; 58661; J2704; J2710; J2250; J1170 ×2; J3010; J1100; J7120 ×4; J2405

== ENCOUNTER 2019-05-29 13:41 | Emergency (ER) | payer BC ==
--- OUTSIDE RECORDS SUMMARY | 2019-05-29 13:44 | XMS REPORT ---
:1965 [facility] Address [address] [place] [address] Dr. Hidalgo [address] [place] [address] Care Team Providers Name Role Phone Unavailable Unavailable Unavailable Problems This patient has no known problems. Allergies, Adverse Reactions, Alerts This patient has no known allergies or adverse reactions. Medications This patient has no known medications.
[2019-05-29] MEDS ORDERED: ASPIRIN 81 MG CHEWABLE TABLET ONE (14:28)
[2019-05-29] MEDS ORDERED: AMLODIPINE 5 MG TAB ONE (14:29)
[2019-05-29 14:31] LABS: Absolute Lymphocytes (CBC) 2.4 K/uL (0.7-4.9); Basophils % 1.2 % (0-1.3); Hematocrit 40.9 % (36.0-45.0); Lymphocytes % 27.9 % (15.3-44.8); MPV 9.2 fL (7.6-11.3); Protime INR 1.17; RBC Red Blood Cell Count 4.53 M/uL (3.86-4.86)
--- NOTE | 2019-05-29 14:41 | RAD REPORT ---
EXAM DESCRIPTION: [facility] Single View05/29/2019 2:33 pm CLINICAL HISTORY: Chest pain COMPARISON: 2017 FINDINGS: The lungs appear clear of acute infiltrate. The heart is normal size IMPRESSION: No acute abnormalities displayed
[2019-05-29 14:55] LABS: ALT/SGPT 72 U/L (12-78); AST/SGOT 68 U/L (15-37); Albumin 3.8 g/dL (3.4-5.0); Alkaline Phosphatase 170 U/L (45-117); BUN Blood Urea Nitrogen 11 mg/dL (7-18); Bicarbonate 27 mmol/L (21-32); Bilirubin Direct 0.1 mg/dL (0-0.2); Bilirubin Total 0.5 mg/dL (0.2-1.0); Glucose Level 107 mg/dL (74-106); Magnesium 2.1 mg/dL (1.8-2.4); NT PRO-BNP 151 pg/mL (<125); Potassium 3.2 mmol/L (3.5-5.1); Protein, Total 7.9 g/dL (6.4-8.2); Sodium Level 139 mmol/L (136-145); Troponin (Emerg Dept Use Only) < 0.02 ng/mL (0.0-0.045)
--- NOTE | 2019-05-29 15:00 | EKG ---
Test Date: 2019-05-29 Test Time: 14:04:47 Beam Sealer: GRAYSON MEASUREMENT RESULTS: Intervals: Rate: 70 NM: 136 QRSD: 88 QT: 428 QTc: 462 [place]: P: 45 NM: 136 QRS: 37 T: 38 INTERPRETIVE STATEMENTS: Normal sinus rhythm Normal ECG Compared to ECG 12/30/2018 14:38:56 T-wave abnormality no longer present Electronically Signed On 05-29-19 15:00:06 CDT by Azam El
--- NOTE | 2019-05-29 15:47 | ER ---
Nurse's Notes [facility] Name: Ofe Patel Age: 53 yrs Sex: Female : 1965 Arrival Date: 05/29/2019 Time: 13:43 Bed 27 Private MD: Diagnosis: Chest pain, unspecified;Hypertensive Urgency Presentation: 05/28 13:52 Chief complaint: Patient states: HICKEY, nausea, high BP, and chest tightness X 3 days, jl7 reports "It feels like something is squeezing the back of my left eye." Reports not taking BP medication for over a month due to insufficient funds. Coronavirus screen: The patient has NOT traveled to a country currently being monitored by the [facility] within the last 14 days. Proceed with normal triage procedures. Ebola Screen: No symptoms or risks identified at this time. Initial Sepsis Screen: Does the patient meet any 2 criteria? No. Patient's initial sepsis screen is negative. Does the patient have a suspected source of infection? No. Patient's initial sepsis screen is negative. Risk Assessment: Do you want to hurt yourself or someone else? Patient reports no desire to harm self or others. Onset of symptoms was May 27, 2019. 13:52 Method Of Arrival: Ambulatory [facility] 13:52 Acuity: INGRID 2 jl7 Triage Assessment: 13:57 General: Appears in no apparent distress. uncomfortable, Behavior is cooperative, jl7 anxious. Pain: Complains of pain in HICKEY Pain currently is 9 out of 10 on a pain scale. Neuro: Level of Consciousness is awake, alert, obeys commands. Cardiovascular: Patient's skin is warm and dry. Respiratory: Airway is patent Respiratory effort is even, unlabored, Respiratory pattern is regular, symmetrical. Derm: Skin is pink, warm \\T\\ dry. 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 - Social history:: Smoking status: Patient denies any tobacco usage or history of. Screenin:10 Abuse screen: Denies threats or abuse. Nutritional screening: No deficits noted. vc Tuberculosis screening: No symptoms or risk factors identified. Fall Risk None identified. Assessment: 14:10 General: Appears in no apparent distress. uncomfortable, ill, Behavior is cooperative, vc appropriate for age, anxious. 14:10 Pain: Complains of pain in chest Pain does not radiate. Pain: Pain began suddenly. vc Neuro: Level of Consciousness is awake, alert, obeys commands, Oriented to person, place, time. Cardiovascular: Reports chest pain, lightheadedness, headache Patient's skin is warm and dry. Chest pain quality is pressure. Respiratory: Respiratory effort is even, unlabored, Respiratory pattern is regular, symmetrical. GI: No signs and/or symptoms were reported involving the gastrointestinal system. : No signs and/or symptoms were reported regarding the genitourinary system. EENT: No signs and/or symptoms were reported regarding the EENT system. Derm: Skin is intact, is healthy with good turgor, Skin temperature is warm. Musculoskeletal: Circulation, motion, and sensation intact. Range of motion: intact in all extremities. 15:00 Reassessment: Patient and/or family updated on plan of care and expected duration. Pain vc level reassessed. Patient is alert, oriented x 3, equal unlabored respirations, skin warm/dry/pink. Patient states feeling better. Vital Signs: 13:52 BP 205 / 101; Pulse 75; Resp 16; Temp 98.5; Pulse Ox 98% ; Weight 83.91 kg; Height 5 jl7 ft. 4 in. (162.56 cm); Pain 7/10; 14:22 BP 166 / 90; Pulse 68; Resp 16; Pulse Ox 98% ; lt1 15:00 BP 149 / 80; Pulse 82; Resp 19; Pulse Ox 95% on R/A; vc 15:30 BP 167 / 96; Pulse 72; Resp 14; Pulse Ox 95% on R/A; vc 13:52 Body Mass Index 31.75 (83.91 kg, 162.56 cm) jl7 ED Course: 13:43 Patient arrived in ED. ag5 13:55 Triage completed. jl7 13:57 Arm band placed on right wrist. jl7 14:00 Patient has correct armband on for positive identification. Placed in gown. Bed in low vc position. Call light in reach. hem marker on. Pulse ox on. NIBP on. 14:00 Patient maintains SpO2 saturation greater than 95% on room air. vc 14:04 Jason Tra[facility]C [facility] la1 14:05 Cody Reaves MD is Attending Physician. la1 14:22 Christal Pang, ANICETO is Primary Nurse. vc 14:24 Initial lab(s) drawn, by me, sent to lab. Inserted saline lock: 22 gauge in right lt1 antecubital area, using aseptic technique. 14:26 Troponin (emerg Dept Use Only) Sent. lt1 14:26 PT-INR Sent. lt1 14:26 NT PRO-BNP Sent. lt1 14:26 Magnesium Sent. lt1 14:26 LFT's Sent. lt1 14:26 CBC with Diff Sent. lt1 14:26 Basic Metabolic Panel Sent. lt1 14:37 EKG done, by shampoo technician. reviewed by Jason KEARNEY. at1 14:38 XRAY Chest (1 view) Sent. vc 15:53 No provider procedures requiring assistance completed. IV discontinued, intact, vc bleeding controlled, No redness/swelling at site. Pressure dressing applied. Administered Medications: 14:20 Drug: Aspirin Chewable Tablet 324 mg Route: PO; vc 15:39 Follow up: Response: No adverse reaction vc 14:20 Drug: amLODIPine 10 mg Route: PO; vc 15:39 Follow up: Response: No adverse reaction vc 15:39 Follow up: Response: No adverse reaction; Blood pressure is lowered vc 15:43 Not Given (Physician Discretion): Metoprolol 5 mg IVP once; Hold for SBP <100 or HR <60.vc Outcome: 15:43 Discharge ordered by . la1 15:54 Discharged to home ambulatory, with significant other. vc 15:54 Condition: good 15:54 Discharge instructions given to patient, significant other, Instructed on discharge instructions, follow up and referral plans. medication usage, Demonstrated understanding of instructions, follow-up care, medications, Prescriptions given X 1. 15:56 Patient left the ED. vc Signatures: Rosanna Muniz, metal room dental technician EKG Tat1 Jason Traore, AUDELIA-C HISTOLOGY TECHNICIAN-Cla1 Mignon Soto, RN RN jl7 Camilla Argueta ag5 Corinna العلي lt1 Christal Pang RN RN vc
--- NOTE | 2019-05-29 15:48 | EDPHYS ---
Physician Documentation [facility] Name: Ofe Patel Age: 53 yrs Sex: Female : 1965 Arrival Date: 05/29/2019 Time: 13:43 Bed 27 Private MD: ED Physician Cody Reaves HPI: 05/28 15:08 This 53 yrs old Female presents to ER via Ambulatory with complaints of Chest la1 Tightness, Headache, High Blood Pressure. 15:08 The patient or guardian reports chest pain that is located primarily in the substernal la1 area. Onset: 3 day(s) ago. The pain does not radiate. Associated signs and symptoms: Pertinent negatives: cough, dizziness, nausea, syncope, vomiting. The chest pain is described as sharp. Duration: The patient or guardian reports a single episode, that is still ongoing. Severity of pain: At its worst the pain was moderate. The patient has not experienced similar symptoms in the past. pt has been out of her amlodipine for at least a month. 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 - Social history:: Smoking status: Patient denies any tobacco usage or history of. ROS: 15:09 Constitutional: Negative for fever, chills, and weight loss, Eyes: Negative for injury, la1 pain, redness, and discharge, ENT: Negative for injury, pain, and discharge, Neck: Negative for injury, pain, and swelling, Cardiovascular: Negative for chest pain, palpitations, and edema, Respiratory: Negative for shortness of breath, cough, wheezing, and pleuritic chest pain. 15:09 Cardiovascular: + chest pain 15:09 Back: Negative for injury and pain, : Negative for injury, bleeding, discharge, and swelling, MS/Extremity: Negative for injury and deformity, Neuro: Negative for headache, weakness, numbness, tingling, and seizure. 15:09 Abdomen/GI: Negative for abdominal pain, nausea, vomiting, and diarrhea. Exam: 15:10 Constitutional: This is a well developed, well nourished patient who is awake, alert, la1 and in no acute distress. Head/Face: Normocephalic, atraumatic. Eyes: Periorbital areas with no swelling, redness, or edema. ENT: Mucous membranes moist. Neck: Trachea midline Chest/axilla: Normal chest wall appearance and motion. Cardiovascular: Regular rate and rhythm with a normal S1 and S2. Respiratory: Lungs have equal breath sounds bilaterally, clear to auscultation Abdomen/GI: Soft, non-tender, with normal bowel sounds. No distension or tympany. No guarding or rebound. No evidence of tenderness throughout. Back: No spinal tenderness. No costovertebral tenderness. Full range of motion. Skin: Warm, dry with normal turgor. Normal color with no rashes, no lesions, and no evidence of cellulitis. MS/ Extremity: Pulses equal, no cyanosis. Neurovascular intact. Full, normal range of motion. Vital Signs: 13:52 BP 205 / 101; Pulse 75; Resp 16; Temp 98.5; Pulse Ox 98% ; Weight 83.91 kg; Height 5 jl7 ft. 4 in. (162.56 cm); Pain 7/10; 14:22 BP 166 / 90; Pulse 68; Resp 16; Pulse Ox 98% ; lt1 15:00 BP 149 / 80; Pulse 82; Resp 19; Pulse Ox 95% on R/A; vc 15:30 BP 167 / 96; Pulse 72; Resp 14; Pulse Ox 95% on R/A; vc 13:52 Body Mass Index 31.75 (83.91 kg, 162.56 cm) jl7 MDM: 14:22 Patient medically screened. la1 15:23 Differential diagnosis: abnormal EKG, acute myocardial infarction, acute pericarditis, la1 anxiety, chest wall pain, cholecystitis, pancreatitis, pleurisy, pneumothorax, stable angina. HEART Score: History: Slightly Suspicious (0), ECG: Normal (0), Age: > 45 and < 65 years (1), Risk Factors: 1 or 2 risk factors (1), Troponin: < or = 1 x Normal Limit (0), Total Score = 2. The patient was given aspirin in the Emergency Department. ZAYDA Risk Score: TOTAL SCORE = 0. Data reviewed: vital signs, nurses notes, lab test result(s), EKG, radiologic studies, and as a result, I will discharge patient. Data interpreted: Pulse oximetry: on room air is 98 %. Interpretation: normal. 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 Response to treatment: the patient's symptoms have markedly improved after treatment, and as a result, I will discharge patient. Special discussion: Based on the patient's history, exam, and Dx evaluation, there is no indication for emergent intervention or inpatient Tx. It is understood by the patient/guardian that if the Sx's persist or worsen they need to return immediately for re-evaluation. I have referred the patient to see his PCP for further evaluation of high blood pressure. ED course: pt pain is relieved after blood pressure is better controlled, feeling much betters, states she has the resources to fill her amlodipine tomorrow, instructed to FU with cardiology in the next few days. . ED course: strict return precautions given. 05/28 14:05 Order name: Basic Metabolic Panel la05/28 14:05 Order name: CBC with Diff la05/28 14:05 Order name: LFT's la05/28 14:05 Order name: Magnesium la05/28 14:05 Order name: NT PRO-BNP la05/28 14:05 Order name: PT-INR la05/28 14:05 Order name: Troponin (emerg Dept Use Only) la05/28 14:41 Order name: CBC with Automated Diff; Complete Time: 15:06 EDMS 05/28 14:41 Order name: Protime (+INR); Complete Time: 15:06 EDMS 05/28 14:57 Order name: Basic Metabolic Panel; Complete Time: 15:06 EDMS 05/28 14:57 Order name: Liver (Hepatic) Function; Complete Time: 15:06 EDMS 05/28 14:57 Order name: Troponin (Emerg Dept Use Only); Complete Time: 15:06 EDMS 05/28 14:57 Order name: NT PRO-BNP; Complete Time: 15:06 EDMS 05/28 14:57 Order name: Magnesium; Complete Time: 15:06 EDMS 05/28 14:05 Order name: XRAY Chest (1 view) la1 05/28 14:05 Order name: EKG; Complete Time: 14:09 la1 05/28 14:05 Order name: Cardiac monitoring; Complete Time: 14:25 la1 05/28 14:05 Order name: EKG - Nurse/Tech; Complete Time: 14:25 la1 05/28 14:05 Order name: IV Saline Lock; Complete Time: 14:25 la1 05/28 14:05 Order name: Labs collected and sent; Complete Time: 14:25 la1 05/28 14:05 Order name: O2 Per Protocol; Complete Time: 14:25 la1 05/28 14:05 Order name: O2 Sat Monitoring; Complete Time: 14:38 la1 Administered Medications: 14:20 Drug: Aspirin Chewable Tablet 324 mg Route: PO; vc 15:39 Follow up: Response: No adverse reaction vc 14:20 Drug: amLODIPine 10 mg Route: PO; vc 15:39 Follow up: Response: No adverse reaction vc 15:39 Follow up: Response: No adverse reaction; Blood pressure is lowered vc 15:43 Not Given (Physician Discretion): Metoprolol 5 mg IVP once; Hold for SBP <100 or HR <60.vc Disposition: 17:25 Co-signature as Attending Physician, Cody Reaves MD I agree with the assessment and kdr plan of care. Disposition: 05/29/19 15:43 Discharged to Home. Impression: Chest pain, unspecified, Hypertensive Urgency. - Condition is Stable. - Discharge Instructions: Nonspecific Chest Pain, Hypertension, Aspirin and Your Heart. - Prescriptions for amlodipine 10 mg Oral tablet - take 1 tablet by ORAL route once daily; 30 tablet. - Medication Reconciliation Form, Thank You Letter, Work release form form. - Follow up: Private Physician; When: 2 - 3 days; Reason: Further diagnostic work-up, Recheck today's complaints, Continuance of care, Re-evaluation by your physician. Follow up: Emergency Department; When: As needed; Reason: Trouble breathing, Worsening of condition. - Problem is new. - Symptoms have improved. Signatures: Dispatcher [employer] EDMS Cody Reaves MD MD [facility] Jason Traore, AUDELIA-C INGOT CAR OPERATOR-Cla1 Mignon Soto, RN RN jl7 Christal Pang, RN RN vc Corrections: (The following items were deleted from the chart) 15:56 15:43 05/29/2019 15:43 Discharged to Home. Impression: Chest pain, unspecified; vc Hypertensive Urgency. Condition is Stable. Forms are Medication Reconciliation Form, Thank You Letter, Antibiotic Education, Prescription Opioid Use. Follow up: Private Physician; When: 2 - 3 days; Reason: Further diagnostic work-up, Recheck today's complaints, Continuance of care, Re-evaluation by your physician. Follow up: Emergency Department; When: As needed; Reason: Trouble breathing, Worsening of condition. Problem is new. Symptoms have improved. la1
[2019-05-29 16:49] VITALS: TEMP 98.5
[2019-05-29 17:14] VITALS: O2SAT 95
[2019-05-29 17:15] VITALS: BP 167/96
== END 2019-05-29 15:56 | disposition home or self-care (01) ==
LOC: ER 13:41
DX: I16.0 Hypertensive urgency (principal); I10 Essential (primary) hypertension; E03.9 Hypothyroidism, unspecified; F32.9 Major depressive disorder, single episode, unspecified
CPT/HCPCS: 36415; 71045; 80048; 80076; 83735; 83880; 84484; 85025; 85610; 93005; 99285

== ENCOUNTER 2020-09-10 06:02 | Inpatient (IN) | payer BC, SELFPAY ==
--- OUTSIDE RECORDS SUMMARY | 2020-09-10 06:05 | XMS REPORT | Continuity of Care Document ---
:1965 Author Organization [facility] t Address [address] [place] [address] Care Team Providers Name Role Phone Rosanna Nicholson Attending Clinician [phone] Feliz Damon MD Attending Clinician Problems This patient has no known problems. Allergies, Adverse Reactions, Alerts This patient has no known allergies or adverse reactions. Medications This patient has no known medications. Procedures This patient has no known procedures. Encounters Start End Encounter Admission Attending Care Care Encounter Source Date/Time Date/Time Type Type Clinicians Facility Department ID 2020-08-09 2020-08-09 Outpatient Merissa Nicholson [facility] [id number] 00:00:00 00:00:00 Rosanna [id number] 2020-08-06 2020-08-06 Office ANNE Damon [id number] 14:38:08 16:24:50 Visit Marcel Echavarria [id number] [place] [id number] Jason [id number] [address] 092 Building Results This patient has no known results.
[2020-09-10] MEDS ORDERED: NA CHLORIDE 0.9% 1,000 ML ONE ×2 (06:49→13:32)
[2020-09-10] MEDS ORDERED: CEFTRIAXONE/SWI 1gm 2 GM/20 ML SYR ONE (06:49)
[2020-09-10] MEDS ORDERED: ACETAMINOPHEN 500 MG TAB ONE (06:49)
[2020-09-10 08:05] LABS: Absolute Lymphocytes (CBC) 0.9 K/uL (0.7-4.9); Basophils % 0.8 % (0-1.3); Hematocrit 37.4 % (36.0-45.0); Lymphocytes % 7.7 % (15.3-44.8); MPV 9.3 fL (7.6-11.3); RBC Red Blood Cell Count 4.19 M/uL (3.86-4.86)
[2020-09-10 08:09] LABS: Urine Blood 2+ (Negative); Urine Glucose Negative (Negative); Urine Protein 2+ (Negative); Urine pH 5.5 (5.0-7.0)
[2020-09-10 08:11] LABS: Protime INR 1.46
[2020-09-10 08:26] LABS: ALT/SGPT 40 U/L (12-78); AST/SGOT 24 U/L (15-37); Albumin 3.2 g/dL (3.4-5.0); Alkaline Phosphatase 154 U/L (45-117); BUN Blood Urea Nitrogen 8 mg/dL (7-18); Bicarbonate 24 mmol/L (21-32); Bilirubin Direct 0.3 mg/dL (0-0.2); Bilirubin Total 1.2 mg/dL (0.2-1.0); Glucose Level 108 mg/dL (74-106); NT PRO-BNP 670 pg/mL (<125); Potassium 3.7 mmol/L (3.5-5.1); Protein, Total 7.7 g/dL (6.4-8.2); Sodium Level 137 mmol/L (136-145); Troponin (Emerg Dept Use Only) < 0.02 ng/mL (0.0-0.045)
--- NOTE | 2020-09-10 08:37 | RAD REPORT ---
EXAM DESCRIPTION: [facility] Single View09/10/2020 6:49 am CLINICAL HISTORY: Fever COMPARISON: 2019 FINDINGS: Mild to moderate patchy bilateral lung opacities. 2 centimeter lucency mid upper right topher g Heart is normal size IMPRESSION: Mild to moderate bilateral patchy lung opacities probably pneumonia. 2 centimeter lucency mid to upper right lung probably normal aerated lung surrounded by pneumonia. Le ss likely a cavity. This should be monitored on follow-up chest x-ray
--- NOTE | 2020-09-10 08:48 | ER ---
Nurse's Notes [facility] Name: Ofe Patel Age: 54 yrs Sex: Female : 1965 Arrival Date: 09/10/2020 Time: 06:06 Bed 7 Private MD: Merissa Nicholson Diagnosis: Acute tubulo-interstitial nephritis;Fever, unspecified;Pneumonia, unspecified organism-BILATERAL, MILD TO MODERATE;Weakness Presentation: 09/10 06:15 Chief complaint: Patient states: left sided mid back pain that radiates into left leg em for 3 days, reports nausea, vomiting, chill and urinary frequency, denies abdominal pain or fever. 06:16 Coronavirus screen: Client denies travel out of the [place] in the last 14 days. Ebola em Screen: Patient negative for fever greater than or equal to 101.5 degrees Fahrenheit, and additional compatible Ebola Virus Disease symptoms Patient denies exposure to infectious person. Patient denies travel to an Ebola-affected area in the 21 days before illness onset. No symptoms or risks identified at this time. Initial Sepsis Screen: Does the patient meet any 2 criteria? Temp <36.0*C (96.8*F)) or > 38.3*C (100.9*F). HR > 90 bpm. Yes Does the patient have a suspected source of infection? Yes: Dysuria/Frequency/Urgency/UTI If YES to both, name of provider notified: Mitch Patel MD. Risk Assessment: Do you want to hurt yourself or someone else? Patient reports no desire to harm self or others. Onset of symptoms was September 10, 2020. 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 - Social history:: Smoking status: Patient denies any tobacco usage or history of. - Family history:: not pertinent. Screenin:04 Abuse screen: Denies threats or abuse. Denies injuries from another. Nutritional sv screening: No deficits noted. Tuberculosis screening: No symptoms or risk factors identified. Fall Risk None identified. Assessment: 07:38 General: Appears in no apparent distress. comfortable, well developed, Behavior is sv calm, cooperative, appropriate for age. Pain: Complains of pain in left mid back. Neuro: Level of Consciousness is awake, alert, obeys commands, Oriented to person, place, time, situation, Moves all extremities. Full function. Respiratory: Airway is patent Respiratory effort is even, unlabored, Respiratory pattern is regular, symmetrical. Derm: Skin is pink, warm \T\ dry. 09:43 Reassessment: Patient appears in no apparent distress at this time. No changes from previously documented assessment. Patient and/or family updated on plan of care and expected duration. Pain level reassessed. Patient is alert, oriented x 3, equal unlabored respirations, skin warm/dry/pink. 10:35 Reassessment: Patient appears in no apparent distress at this time. Patient and/or sv family updated on plan of care and expected duration. Pain level reassessed. Patient is alert, oriented x 3, equal unlabored respirations, skin warm/dry/pink. Vital Signs: 06:16 BP 119 / 84; Pulse 112; Resp 20; Temp 101.2(O); Pulse Ox 99% on R/A; Weight 83.46 kg; em Height 5 ft. 4 in. (162.56 cm); Pain 6/10; 07:35 BP 104 / 62; Pulse 99 MON; Resp 14; Temp 100.2(O); Pulse Ox 97% on R/A; sv 08:20 BP 122 / 67; Pulse 94; Resp 13; Pulse Ox 97% on R/A; sv 09:00 BP 115 / 67; Pulse 83; Resp 15; Pulse Ox 98% ; sv 09:46 Temp 98.4(O); sv 06:16 Body Mass Index 31.58 (83.46 kg, 162.56 cm) em 07:35 Sinus Rhythm ED Course: 06:06 Patient arrived in ED. es 06:08 Merissa Nicholson MD is Private Physician. es 06:18 Triage completed. em 06:19 Arm band placed on. em 06:22 Mitch Patel MD is Attending Physician. serenity 06:32 Chino Quinteros is Primary Nurse. ak2 06:49 XRAY Chest (1 view) In Process Unspecified. EDMS 07:03 Magnesium Sent. sv 07:03 LFT's Sent. sv 07:03 CBC with Diff Sent. sv 07:03 Basic Metabolic Panel Sent. sv 07:04 Report received from Trent MORELAND. sv 07:04 Patient has correct armband on for positive identification. Bed in low position. Call sv light in reach. patient monitor on. Pulse ox on. NIBP on. 07:06 Primary Nurse role handed off by Chino Quinteros sv 07:06 Ella Azul, ANICETO is Primary Nurse. sv 08:15 Urine collected: clean catch specimen, mehdi colored. dh3 08:40 First set of blood cultures drawn by me, by venipuncture 23G to left ac. dh3 08:45 Second set of blood cultures drawn by me. dh3 08:46 Lennox Santillan MD is Hospitalizing Provider. [facility] 09:02 CT Chest, Abdomen, Pelvis - W/Contrast In Process Unspecified. EDMS 11:24 No provider procedures requiring assistance completed. Patient admitted, IV remains in sv place. intact. Administered Medications: 06:32 Drug: Rocephin (cefTRIAXone) 2 grams Route: IV; Rate: per protocol; Site: right ea antecubital; 06:33 Drug: Tylenol 1000 mg Route: PO; ea 07:20 Follow up: Response: No adverse reaction sv 06:33 Drug: NS 0.9% (30 ml/kg) 30 ml/kg Route: IV; Rate: bolus; Site: right antecubital; ak2 10:30 Follow up: Response: No adverse reaction; IV Status: Completed infusion; IV Intake: sv 2000ml 09:43 Drug: Zithromax (azithromycin) 500 mg Route: IVPB; Infused Over: 1 hrs; Site: right sv antecubital; 11:00 Follow up: Response: No adverse reaction; IV Status: Completed infusion; IV Intake: sv 250ml 10:35 Drug: Zofran (Ondansetron) 4 mg Route: IVP; Site: right antecubital; sv 11:24 Follow up: Response: No adverse reaction sv 10:37 Drug: morphine 4 mg {Note: rass1.} Route: IVP; Site: right antecubital; sv 11:24 Follow up: Response: No adverse reaction; RASS: Alert and Calm (0) sv Intake: 10:30 IV: 2000ml; Total: 2000ml. sv 11:00 IV: 250ml; Total: 2250ml. sv Outcome: 08:48 Decision to Hospitalize by Provider. serenity 11:24 Admitted to ER Hold. Please see [facility] for further documentation. sv 11:24 Condition: stable 11:24 Instructed on the need for admit. 14:19 Patient left the ED. sv Signatures: Dispatcher [employer] Ella Rocha RN RN sv Anderson, Corey, MD MD cha Salyer, Antonio Mccabe RN Laura Flores [facility] Kisha Mitchell RN RN ea Kapolka, Anthony ak2 Corrections: (The following items were deleted from the chart) 06:23 06:16 Chief complaint: em em 08:49 08:40 First set of blood cultures drawn by soo musa [facility]
--- NOTE | 2020-09-10 08:48 | EDPHYS ---
Physician Documentation [facility] Name: Ofe Patel Age: 54 yrs Sex: Female : 1965 Arrival Date: 09/10/2020 Time: 06:06 Bed 7 Private MD: Merissa Nicholson ED Physician Mitch Patel HPI: 09/10 08:37 This 54 yrs old Female presents to ER via Ambulatory with complaints of Pain, serenity Chills. 08:37 The patient presents with pain that is acute, with no known mechanism of injury. The serenity symptoms are located in the low back, right mid back and right low back. Onset: The symptoms/episode began/occurred 3 day(s) ago. Location: left low back. Associated signs and symptoms: Pertinent positives: fever, weakness. The problem was sustained from unknown cause. Severity of symptoms: At their worst the symptoms were moderate, in the emergency department the symptoms are unchanged. Modifying factors: The symptoms are alleviated by nothing, the symptoms are aggravated by nothing. 08:39 The patient or guardian reports cough, described as mild, difficulty breathing. Onset: serenity The symptoms/episode began/occurred 3 day(s) ago. The patient reports fever, that was measured at 103 degrees Fahrenheit. Associated signs and symptoms: Pertinent positives: fever, nausea, sore throat, vomiting. 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 - Social history:: Smoking status: Patient denies any tobacco usage or history of. - Family history:: not pertinent. ROS: 08:39 Eyes: Negative for injury, pain, redness, and discharge, ENT: Negative for injury, serenity pain, and discharge, Neck: Negative for injury, pain, and swelling, Cardiovascular: Negative for chest pain, palpitations, and edema, Abdomen/GI: Negative for abdominal pain, nausea, vomiting, diarrhea, and constipation, : Negative for injury, bleeding, discharge, and swelling, MS/Extremity: Negative for injury and deformity, Skin: Negative for injury, rash, and discoloration, Neuro: Negative for headache, weakness, numbness, tingling, and seizure, Psych: Negative for depression, anxiety, suicide ideation, homicidal ideation, and hallucinations, Allergy/Immunology: Negative for hives, rash, and allergies, Endocrine: Negative for neck swelling, polydipsia, polyuria, polyphagia, and marked weight changes, Hematologic/Lymphatic: Negative for swollen nodes, abnormal bleeding, and unusual bruising. 08:39 Constitutional: Positive for fever. 08:39 Back: Positive for pain at rest, flank pain, on the left, radiated pain, of the left low back and left mid back. Exam: 08:39 Head/Face: Normocephalic, atraumatic. Eyes: Pupils equal round and reactive to light, serenity extra-ocular motions intact. Lids and lashes normal. Conjunctiva and sclera are non-icteric and not injected. Cornea within normal limits. Periorbital areas with no swelling, redness, or edema. ENT: Nares patent. No nasal discharge, no septal abnormalities noted. Tympanic membranes are normal and external auditory canals are clear. Oropharynx with no redness, swelling, or masses, exudates, or evidence of obstruction, uvula midline. Mucous membranes moist. Neck: Trachea midline, no thyromegaly or masses palpated, and no cervical lymphadenopathy. Supple, full range of motion without nuchal rigidity, or vertebral point tenderness. No Meningismus. Chest/axilla: Normal chest wall appearance and motion. Nontender with no deformity. No lesions are appreciated. Cardiovascular: Regular rate and rhythm with a normal S1 and S2. No gallops, murmurs, or rubs. Normal PMI, no JVD. No pulse deficits. Abdomen/GI: Soft, non-tender, with normal bowel sounds. No distension or tympany. No guarding or rebound. No evidence of tenderness throughout. Skin: Warm, dry with normal turgor. Normal color with no rashes, no lesions, and no evidence of cellulitis. MS/ Extremity: Pulses equal, no cyanosis. Neurovascular intact. Full, normal range of motion. Neuro: Awake and alert, GCS 15, oriented to person, place, time, and situation. Cranial nerves II-XII grossly intact. Motor strength 5/5 in all extremities. Sensory grossly intact. Cerebellar exam normal. Normal gait. Psych: Awake, alert, with orientation to person, place and time. Behavior, mood, and affect are within normal limits. 08:39 Constitutional: The patient appears febrile. 08:39 Chest/axilla: Inspection: normal, no acute changes, Palpation: is normal, no acute changes, Axilla: are normal, no acute changes, Breasts: are normal. 08:39 Respiratory: the patient does not display signs of respiratory distress, Respirations: no acute changes, Breath sounds: bronchial sounds, that are moderate, are scattered, decreased breath sounds, that are mild, are heard in the right upper lobe, right posterior upper lobe and right posterior middle lobe, rhonchi, that are moderate, are scattered, stridor, is not appreciated, + upper airway congestion. Respiratory rate: 13 08:51 ECG was reviewed by the Attending Physician. serenity Vital Signs: 06:16 BP 119 / 84; Pulse 112; Resp 20; Temp 101.2(O); Pulse Ox 99% on R/A; Weight 83.46 kg; em Height 5 ft. 4 in. (162.56 cm); Pain 6/10; 07:35 BP 104 / 62; Pulse 99 MON; Resp 14; Temp 100.2(O); Pulse Ox 97% on R/A; sv 08:20 BP 122 / 67; Pulse 94; Resp 13; Pulse Ox 97% on R/A; sv 09:00 BP 115 / 67; Pulse 83; Resp 15; Pulse Ox 98% ; sv 09:46 Temp 98.4(O); sv 06:16 Body Mass Index 31.58 (83.46 kg, 162.56 cm) em 07:35 Sinus Rhythm sv MDM: 06:22 Patient medically screened. serenity 08:48 Differential diagnosis: viral Infection, bacterial infection, URI, bronchitis, serenity pneumonia UTI, chronic back pain, Fatigue Hydronephrosis Osteoarthritis Pyelonephritis Renal Infarction Ureterolithiasis. Differential Diagnosis: Bronchitis Influenza Upper Respiratory Infection Sinusitis Pharyngitis Viral Syndrome Pneumonia. Data reviewed: vital signs, nurses notes, lab test result(s), EKG, radiologic studies, CT scan, plain films. Data interpreted: engine monitor: rate is 94 beats/min, rhythm is regular, Pulse oximetry: on room air is 97 %. Test interpretation: by ED physician or midlevel provider: ECG, plain radiologic studies. Counseling: I had a detailed discussion with the patient and/or guardian regarding: the historical points, exam findings, and any diagnostic results supporting the discharge/admit diagnosis, lab results, radiology results, the need for further work-up and treatment in the hospital. 09/10 06:26 Order name: Basic Metabolic Panel [facility] 09/10 06:26 Order name: CBC with Diff [facility] 09/10 06:26 Order name: LFT's [facility] 09/10 06:26 Order name: Magnesium [facility] 09/10 06:26 Order name: NT PRO-BNP; Complete Time: 08:33 [facility] 09/10 06:26 Order name: PT-INR; Complete Time: 08:33 [facility] 09/10 06:26 Order name: Troponin (emerg Dept Use Only); Complete Time: 08:33 [facility] 09/10 06:26 Order name: Urine Culture [facility] 09/10 06:26 Order name: Lactate; Complete Time: 08:33 [facility] 09/10 06:26 Order name: Procalcitonin [facility] 09/10 06:27 Order name: Basic Metabolic Panel; Complete Time: 08:33 [facility] 09/10 06:27 Order name: CBC with Automated Diff; Complete Time: 08:14 [facility] 09/10 06:27 Order name: Liver (Hepatic) Function; Complete Time: 08:33 [facility] 09/10 06:26 Order name: XRAY Chest (1 view); Complete Time: 09:20 [facility] 09/10 06:26 Order name: EKG; Complete Time: 06:27 [facility] 09/10 06:26 Order name: Cardiac monitoring; Complete Time: 06:34 [facility] 09/10 06:26 Order name: EKG - Nurse/Tech; Complete Time: 06:34 [facility] 09/10 06:27 Order name: Magnesium; Complete Time: 08:33 [facility] 09/10 07:56 Order name: SARS-COV-2 RT PCR; Complete Time: 08:14 [facility] 09/10 08:09 Order name: Urine Dipstick-Ancillary; Complete Time: 08:14 [facility] 09/10 08:19 Order name: Blood Culture Adult (2) 09/10 08:43 Order name: CT Chest, Abdomen, Pelvis - W/Contrast [facility] 09/10 06:26 Order name: IV Saline Lock; Complete Time: 06:34 [facility] 09/10 06:26 Order name: Labs collected and sent; Complete Time: 06:34 [facility] 09/10 06:26 Order name: O2 Per Protocol; Complete Time: : [facility] 09/10 06:26 Order name: O2 Sat Monitoring; Complete Time: [facility] 09/10 06:26 Order name: Urine Dipstick-Ancillary (obtain specimen); Complete Time: 08:15 [facility] EC:51 Rate is 110 beats/min. Rhythm is regular. QRS [place] is Normal. NC interval is normal. [facility] QRS interval is normal. QT interval is normal. No Q waves. T waves are Normal. T waves are Inverted in leads I, II, III, aVL, aVF. No ST changes noted. Clinical impression: NSR w/ Non-specific ST/T Changes. Administered Medications: 06:32 Drug: Rocephin (cefTRIAXone) 2 grams Route: IV; Rate: per protocol; Site: right ea antecubital; 06:33 Drug: Tylenol 1000 mg Route: PO; ea 07:20 Follow up: Response: No adverse reaction sv 06:33 Drug: NS 0.9% (30 ml/kg) 30 ml/kg Route: IV; Rate: bolus; Site: right antecubital; ak2 10:30 Follow up: Response: No adverse reaction; IV Status: Completed infusion; IV Intake: sv 2000ml 09:43 Drug: Zithromax (azithromycin) 500 mg Route: IVPB; Infused Over: 1 hrs; Site: right sv antecubital; 11:00 Follow up: Response: No adverse reaction; IV Status: Completed infusion; IV Intake: sv 250ml 10:35 Drug: Zofran (Ondansetron) 4 mg Route: IVP; Site: right antecubital; sv 11:24 Follow up: Response: No adverse reaction sv 10:37 Drug: morphine 4 mg {Note: rass1.} Route: IVP; Site: right antecubital; sv 11:24 Follow up: Response: No adverse reaction; RASS: Alert and Calm (0) sv Disposition: 09/10/20 08:48 Hospitalization ordered by Lennox Santillan for Inpatient Admission. Preliminary diagnosis are Acute tubulo-interstitial nephritis, Fever, unspecified, Pneumonia, unspecified organism - BILATERAL, MILD TO MODERATE, Weakness. - Bed requested for Telemetry/MedSurg (Inpatient). - Status is Inpatient Admission. sv - Condition is Stable. - Problem is new. - Symptoms have improved. Signatures: Dispatcher [employer] [facility] Ella Azul RN RN sv Anderson, Corey, MD MD cha Munoz, Edgar, RN Kisha Beck RN Gabrielle Peng ea, Anthony ak2 Corrections: (The following items were deleted from the chart) 06:59 06:27 CORONAVIRUS+MR.LAB.BRZ ordered. [facility] EDMS 08:52 08:34 Abdomen Pelvis W Con+CT.RAD.BRZ ordered. [facility] 11:05 08:48 Hospitalization Ordered by Lennox Santillan MD for Inpatient Admission. Preliminary eb diagnosis is Acute tubulo-interstitial nephritis; Fever, unspecified; Pneumonia, unspecified organism - BILATERAL, MILD TO MODERATE; Weakness. Bed requested for Telemetry/MedSurg (Inpatient). Status is Inpatient Admission. Condition is Stable. Problem is new. Symptoms have improved. [facility] 13:36 11:05 09/10/2020 08:48 Hospitalization Ordered by Lennox Santillan MD for Inpatient eb Admission. Preliminary diagnosis is Acute tubulo-interstitial nephritis; Fever, unspecified; Pneumonia, unspecified organism - BILATERAL, MILD TO MODERATE; Weakness. Bed requested for [facility] ER HOLD. Status is Inpatient Admission. Condition is Stable. Problem is new. Symptoms have improved. eb 14:19 13:36 09/10/2020 08:48 Hospitalization Ordered by Lennox Santillan MD for Inpatient sv Admission. Preliminary diagnosis is Acute tubulo-interstitial nephritis; Fever, unspecified; Pneumonia, unspecified organism - BILATERAL, MILD TO MODERATE; Weakness. Bed requested for Telemetry/MedSurg (Inpatient). Status is Inpatient Admission. Condition is Stable. Problem is new. Symptoms have improved. eb
[2020-09-10] MEDS ORDERED: AZITHROMYCIN IV 500 MG in NA CHLORIDE 0.9% 250 ML IVPB ONE (09:00)
--- NOTE | 2020-09-10 09:43 | RAD REPORT ---
EXAM DESCRIPTION: CT - Chest Abdomen Pelvis W Cont - 09/10/2020 9:02 am CLINICAL HISTORY: Chest and abdominal pain COMPARISON: CT abdomen 2019 TECHNIQUE: Computed axial tomography of the chest, abdomen and pelvis was obtained. 100 cc Isovue-30 0 was administered intravenously. Oral contrast was not requested. This limits evaluation of bowel. All CT scans are performed using dose optimization technique as appropriate and may include automated exposure control or mA/KV adjustment according to patient size. FINDINGS: Mild to moderate bilateral patchy lung opacities. No mediastinal or hilar lymphadenopathy No pericardial effusion. No pleural effusion. Several hepatic cysts. Spleen, pancreas and adrenals unremarkable. 2.7 centimeter right renal cyst. Several small low-density areas within the left kidney extending towards the periphery. Enhancement o f the wall of the left renal pelvis and left ureter. No evidence of diverticulitis. Normal appendix IMPRESSION: Mild to moderate bilateral patchy lung opacities likely pneumonia Several small low-density areas within the left kidney extending to the periphery. Enhancement of the wall of the left renal pelvis and left ureter. This all likely indicates infection
[2020-09-10] MEDS ORDERED: MORPHINE 4 MG/ML SYR ONE (10:53)
[2020-09-10] MEDS ORDERED: ONDANSETRON 4 MG/2 ML VIAL ONE (10:54)
[2020-09-10] MEDS: NA CHLORIDE 0.9% 1,000 ML IV SCH ×2 (11:32→21:00)
[2020-09-10] MEDS ORDERED: MORPHINE 2 MG/ML SYR IV PRN (11:32)
[2020-09-10] MEDS ORDERED: ONDANSETRON 4 MG/2 ML VIAL IV PRN (11:32)
--- NOTE | 2020-09-10 11:38 | P.HP ---
Certification for Inpatient With expected LOS: <2 Midnights Patient will require the following post-hospital care: None Practitioner: I am a practitioner with admitting privileges, knowledge of patient current condition, hospital course, and medical plan of care. Services: Services provided to patient in accordance with Admission requirements found in Title 42 Section 412.3 of the Code of Federal Regulations <Nurys Paredes - Last Filed: 09/10/20 18:42> Patient History Date of Service: 09/10/20 Primary Care Provider: Dr. Merissa Nicholson Reason for admission: pyelonephritis History of Present Illness: This is a 54 y/o F w/ HTN, hypothyroidism who presents today w/ worsening L sided flank pain x 3 days. She reports the pain started from her L hip area and radiates down to leg. She reports minimal relief w/ heating pad and aleve. She reports this pain has never this has never happened before. Pain was 10/10, and now is 6/10. She c/o fever, chills, nausea, vomiting, and increased urinary hesitancy. She also c/o productive cough and pleuritic pain that started around the same time as flank pain. She denies any abdominal pain, hematuria, dysuria. She was diagnosed w/ covid on August 20 but denies any respiratory symptoms at the time. She reports she only felt fatigued and was otherwise asymptomatic. The cough she is experiencing now is new and denies any SOB, wheezing, hemoptysis. In the ER she received azithromycin and ceftriaxone. WC 11, procal 0.82, urine positive for nitrites and leukocytes CXR: Mild to moderate bilateral patchy lung opacities probably pneumonia. 2 centimeter lucency mid to upper right lung probably normal aerated lung surrounded by pneumonia. Less likely a cavity. This should be monitored on follow-up chest x-ray. CT: Mild to moderate bilateral patchy lung opacities likely pneumonia. Several small low-density areas within the left kidney extending to the periphery. Enhancement of the wall of the left renal pelvis and left ureter. This all likely indicates infection. - Past Medical/Surgical History Diabetic: No -: htn -: depression -: hypothyroidism -: anxiety -: partial hysterectomy -: hernia repair Psychosocial/ Personal History: lives at home with and son - Family History Mother -: Hypertension, Diabetes, Stroke, Kidney disease Notes: thyroid issues Father -: Heart disease Notes: from [place] at 72 y/o - Social History Smoking Status: Never smoker Alcohol use: Yes CD- Drugs: No Caffeine use: No <Nurys Paredes - Last Filed: 09/10/20 18:42> Date of Service: 09/10/20 <Lennox Santillan - Last Filed: 09/10/20 20:52> Allergies No Known Drug Allergies Allergy (Verified 02/25/19 12:59) Unknown Home Medications: Linaclotide [Linzess] 1 mg PO DAILY PRN 12/06/17 ARIPiprazole [Abilify] 5 mg PO DAILY 02/25/19 Irbesartan/Hydrochlorothiazide [Avalide 300-12.5 mg Tablet] 1 each PO SVOCA1HG 02/25/19 Amlodipine Besylate 1 tab PO DAILY 09/10/20 Benzonatate 1 tab PO TID 09/10/20 Colesevelam HCl [Welchol] 6 tab PO DAILY 09/10/20 Duloxetine HCl 1 cap PO DAILY 09/10/20 Ergocalciferol (Vitamin D2) [Vitamin D2] 1 tab PO SEECOM 09/10/20 Levothyroxine Sodium [Levothyroxine] 1 tab PO DAILY 09/10/20 Metoprolol Succinate [Toprol Xl*] 1 tab PO DAILY 09/10/20 Pantoprazole Sodium 1 tab PO DAILY 09/10/20 Promethazine HCl 1 tab PO Q4H PRN 09/10/20 Review of Systems General: Fever, Chills Respiratory: Cough Gastrointestinal: Nausea, Vomiting Genitourinary: Other (hesitancy) Musculoskeletal: Back Pain <Nruys Paredes - Last Filed: 09/10/20 18:42> Physical Examination - Physical Exam General: Alert, Oriented x3 HEENT: Atraumatic, Normocephalic, EOMI, Sclerae nonicteric Neck: Supple Respiratory: Diminished Cardiovascular: No edema, Regular rate/rhythm, Normal S1 S2 Capillary refill: <2 Seconds Gastrointestinal: Normal bowel sounds, Soft and benign, No masses, No rebound, No guarding, Other (mild CVA tenderness), Distended Musculoskeletal: No swelling Integumentary: No rashes, No breakdown Neurological: Normal speech, Normal tone, Normal affect - Studies Laboratory Data (last 24 hrs) 09/10/20 06:30: PT 16.9 H, INR 1.46 09/10/20 06:30: WBC 11.00 H, Hgb 12.6, Hct 37.4, Plt Count 355 09/10/20 06:30: Sodium 137, Potassium 3.7, BUN 8, Creatinine 1.03, Glucose 108 H, Magnesium 2.0, Total Bilirubin 1.2 H, AST 24, ALT 40, Alkaline Phosphatase 154 H <Nurys Paredes - Last Filed: 09/10/20 18:42> - Studies Laboratory Data (last 24 hrs) 09/10/20 06:30: PT 16.9 H, INR 1.46 09/10/20 06:30: WBC 11.00 H, Hgb 12.6, Hct 37.4, Plt Count 355 09/10/20 06:30: Sodium 137, Potassium 3.7, BUN 8, Creatinine 1.03, Glucose 108 H, Magnesium 2.0, Total Bilirubin 1.2 H, AST 24, ALT 40, Alkaline Phosphatase 154 H <Lennox Santillan - Last Filed: 09/10/20 20:52> Assessment and Plan - Plan Impression: leukocytosis secondary to pyelonephritis new onset productive cough HTN hypothyroidism depression anxiety Plan: leukocytosis secondary to pyelonephritis: pt admitted for further evaluation and treatment. will continue ceftriaxone. will continue IVF and pain control. bladder scan ordered due to mild distention. anticipate improvement over next 48 hours. new onset productive cough: pt diagnosed w/ covid-19 earlier this month but otherwise remains asymptomatic. bilateral lung opacities seen on CXR. will order sputum cultures. continue to monitor and f/u with CXR HTN, hypothyroidism, depression, anxiety: reconcile and restart home meds. Discharge Plan: Home Plan to discharge in: 48 Hours - Advance Directives Does patient have a Living Will: No Does patient have a Durable POA for Healthcare: No - Code Status/Comfort Care Code Status Assessed: Yes Code Status: Full Code Time Spent Managing Pts Care (In Minutes): 55 <Nurys Paredes - Last Filed: 09/10/20 18:42> - Plan Plan of care reviewed with Nurys Paredes as noted above. pyelonephritis - UA grossly positive with imaging consistent with pyelo. continue rocephin does not appear septic f/u cultures IVF, PRN pain control b/l opacities likely residual from prior COVID-19 infection earlier this month and not bacterial pneumonia obtain/confirm home meds and restart as appropriate. <Lennox Santillan - Last Filed: 09/10/20 20:52>
[2020-09-10 14:11] VITALS: BMI 31.4
[2020-09-10] MEDS: POTASSIUM CL SA 10 MEQ TAB PO ONE ×2 (14:50→15:00)
[2020-09-10] MEDS: ACETAMINOPHEN 500 MG TAB PO PRN ×2 (14:50→21:45)
--- NOTE | 2020-09-10 17:36 | RAD REPORT ---
EXAM DESCRIPTION: US - Urinary Bladder - 09/10/2020 5:28 pm CLINICAL HISTORY: urinary retention Pelvic pain COMPARISON: Chest Abdomen Pelvis W Cont dated 09/10/2020 TECHNIQUE: Real-time sonographic evaluation of the urinary bladder with pre and postvoid volume moshe urements was performed. FINDINGS: No urinary bladder mass or ureterocele is seen. Prevoid bladder volume 130 mL. Post void b ladder volume is 1 mL. IMPRESSION: No significant PVR.
[2020-09-10 21:59] LABS: Urine Appearance CLEAR (Clear); Urine Bilirubin NEGATIVE (Negative); Urine Blood NEGATIVE (Negative); Urine Color YELLOW (Yellow); Urine Glucose NEGATIVE (Negative); Urine Protein NEGATIVE (Negative); Urine pH 6.5 (5.0-7.0)
[2020-09-10 22:10] LABS: Urine Microscopic Reflex NO UMIC
[2020-09-11] MEDS: ACETAMINOPHEN 500 MG TAB PO PRN ×2 (05:13→20:18)
[2020-09-11 05:23] LABS: Magnesium 2.1 mg/dL (1.8-2.4); Potassium 3.5 mmol/L (3.5-5.1)
[2020-09-11 05:37] LABS: Absolute Lymphocytes (CBC) 1.2 K/uL (0.7-4.9); Basophils % 0.5 % (0-1.3); Hematocrit 33.4 % (36.0-45.0); Lymphocytes % 13.9 % (15.3-44.8); MPV 9.8 fL (7.6-11.3); RBC Red Blood Cell Count 3.71 M/uL (3.86-4.86)
[2020-09-11] MEDS ORDERED: POTASSIUM CL SA 10 MEQ TAB PO ONE (05:55)
--- NOTE | 2020-09-11 06:59 | EKG ---
Test Date: 2020-09-10 Test Time: 06:31:02 Beauty Sales Consultant: ADELAIDA MEASUREMENT RESULTS: Intervals: Rate: 110 IL: 132 QRSD: 78 QT: 312 QTc: 422 [place]: P: 35 IL: 132 QRS: 27 T: 18 INTERPRETIVE STATEMENTS: Sinus tachycardia Possible Anterior infarct, age undetermined ST & T wave abnormality, consider inferior ischemia Abnormal ECG Compared to ECG 05/29/2019 14:04:47 Myocardial infarct finding now present ST (T wave) deviation now present Possible ischemia now present Sinus rhythm no longer present Electronically Signed On 09-11-20 06:56:28 CDT by Azam El
[2020-09-11] MEDS: NA CHLORIDE 0.9% 1,000 ML IV SCH ×3 (07:11→20:17)
[2020-09-11] MEDS: CEFTRIAXONE/SWI 1gm 1 GM/10 ML SYR IV SCH (07:35)
[2020-09-11] MEDS: ENOXAPARIN 40 MG/0.4 ML SQ SCH (07:35)
--- NOTE | 2020-09-11 08:29 | RAD REPORT ---
EXAM DESCRIPTION: RAD - Chest Pa And Lat (2 Views) - 09/11/2020 8:11 am CLINICAL HISTORY: bilateral pneumonia COMPARISON: Portable September 10, portable May 2019 TECHNIQUE: Frontal and lateral views of the chest were obtained. FINDINGS: The lungs are normal volume. Extensive bilateral mostly peripheral interstitial opacificat ion is present with areas of scattered airspace opacification peripherally. Pattern shows slight wors ening from the prior day study. Heart size is normal and central vasculature is within normal limits. No pleural effusion or pneu mothorax seen. No acute bony finding noted. No aortic abnormality. IMPRESSION: Slight worsening of the bilateral pneumonia pattern compared to September 10.
[2020-09-11 10:59] LABS: Ferritin 148.6 ng/mL (8-388)
--- NOTE | 2020-09-11 11:32 | P.CNS ---
Date of Consult: 09/11/20 Reason for Consult: Shortness of breath Primary Care Provider: Dr. Merissa Nicholson Chief Complaint: Shortness of breath History of Present Illness: Patient is 54 years of age with a history of hypertension hypothyroidism having some left flank pain for the past 4 days also has some fever was radiating to her left leg complains of chills nausea vomiting productive cough and chest discomfort and appeared in the emergency room nose with gomez virus on August 20 felt fatigued currently on antibiotic does not appear to be septic possible mild pyelonephritis for prior history of smoking lung or heart problems This is a 54 y/o F w/ HTN, hypothyroidism who presents today w/ worsening L sided flank pain x 3 days. She reports the pain started from her L hip area and Allergies No Known Drug Allergies Allergy (Verified 02/25/19 12:59) Unknown Home Medications: Linaclotide [Linzess] 1 mg PO DAILY PRN 12/06/17 ARIPiprazole [Abilify] 5 mg PO DAILY 02/25/19 Irbesartan/Hydrochlorothiazide [Avalide 300-12.5 mg Tablet] 1 each PO [id number] 02/25/19 Amlodipine Besylate 1 tab PO DAILY 09/10/20 Benzonatate 1 tab PO TID 09/10/20 Colesevelam HCl [Welchol] 6 tab PO DAILY 09/10/20 Duloxetine HCl 1 cap PO DAILY 09/10/20 Ergocalciferol (Vitamin D2) [Vitamin D2] 1 tab PO SEECOM 09/10/20 Levothyroxine Sodium [Levothyroxine] 1 tab PO DAILY 09/10/20 Metoprolol Succinate [Toprol Xl*] 1 tab PO DAILY 09/10/20 Pantoprazole Sodium 1 tab PO DAILY 09/10/20 Promethazine HCl 1 tab PO Q4H PRN 09/10/20 - Past Medical/Surgical History Diabetic: No -: htn -: depression -: hypothyroidism -: anxiety -: GERD -: Hormone replacement -: partial hysterectomy -: hernia repair Psychosocial/ Personal History: lives at home with and son - Family History Mother Medical History: Hypertension, Diabetes, Stroke, Kidney disease Notes: thyroid issues Father Medical History: Heart disease Notes: from [place] at 72 y/o - Social History Alcohol use: Yes CD- Drugs: No Caffeine use: No Review of Systems General: Weakness Respiratory: Shortness of Breath Genitourinary: Other (Left flank plain as per HPI an) Physical Examination Temp Pulse Resp BP Pulse Ox 97.4 F 82 18 133/64 95 09/11/20 08:00 09/11/20 08:00 09/11/20 08:00 09/11/20 08:00 09/11/20 08:00 General: Alert, In no apparent distress, Mild distress Respiratory: Clear to auscultation bilaterally Cardiovascular: No edema, Regular rate/rhythm Gastrointestinal: Normal bowel sounds, Soft and benign Musculoskeletal: No clubbing, No swelling Integumentary: No rashes, No breakdown - Problems (1) Pneumonia due to coronavirus disease 2019 Current Visit: Yes Status: Acute Plan: Patient is 54 years of age has bilateral infiltrates most likely gomez virus pneumonia tested positive in August 20 he is currently negative I recommend low- dose Decadron 6 mg once a day p.o. should be adequate try some inhalers possible pyelonephritis chemistries reviewed white count is now normal r repeat urinalysis did not show any evidence of an infection urine culture is also negative they have gomez virus all induced symptoms observe for another 24 hr check room air pulse ox possible discharge tomorrow on low-dose Decadron 2 mg twice a day for 10 days follow with me in my office in another week
[2020-09-11] MEDS: dexAMETHasone 4 MG TAB PO SCH ×2 (12:31→20:18)
[2020-09-11] MEDS: DULERA 200/5 (MOMETASONE/FORMOTEROL) INHALER IH SCH ×2 (12:55→20:18)
[2020-09-11 13:26] LABS: C.diff Antigen/Toxin Ag pos : Tox pos (NEG : NEG)
[2020-09-11] MEDS: VANCOMYCIN ORAL SOLN 250 MG/5 ML OSYR PO SCH ×2 (14:52→17:02)
--- NOTE | 2020-09-11 14:55 | P.PN ---
Subjective Date of Service: 09/11/20 Primary Care Provider: Dr. Merissa Nicholson Chief Complaint: Shortness of breath Subjective: Improving (feels slightly better, pain improved, mild nausea, several episodes of diarrhea this morning, no prior episodes, watery. on O2) Review of Systems 10-point ROS is otherwise unremarkable Physical Examination - Vital Signs Temperature: 98 F Blood Pressure: 117/57 Pulse: 82 Respirations: 18 Pulse Ox (%): 96 - Studies Microbiology Data (last 24 hrs): 09/10/20 06:30 Blood - Blood Anaerobic Blood Culture - Final 09/10/20 06:18 Blood - Blood Anaerobic Blood Culture - Final Assessment & Plan Physician Review Additional Text: Physical Exam General: Alert, NAD, Oriented x3 HEENT: Normal conjunctiva, sclerae anicteric Respiratory: Diminished bilaterally at bases, nonlabored on 2 L nasal cannula Cardiovascular: No edema, Regular rate/rhythm, Normal S1 S2 Gastrointestinal: Soft, nontender, nondistended, no CVA tenderness Musculoskeletal: No swelling Integumentary: No rashes, No breakdown Neurological: Normal speech, Normal affect Problem List L Pyelonephritis h/o COVid-19 infection Diarrhea HTN hypothyroidism depression anxiety -continue IV rocephin, IVF, pain control -voiding without issue -f/u cultures -diarrhea is new, after abx, will check stool studies / c diff, start empiric PO vanc -b/l lung opacities worsened on CXR, pt with cough, hypoxia, recent covid + on august 20, reports 1 week ago and yesterday covid was negative -consult pulm -check ferritin/crp VTE: lovenox Code: full Dispo: anticipate dc home in 24-48hrs Time Spent Managing Pts Care (In Minutes): 45
[2020-09-12] MEDS: VANCOMYCIN ORAL SOLN 250 MG/5 ML OSYR PO SCH ×3 (01:21→12:09)
[2020-09-12 04:15] LABS: Absolute Lymphocytes (CBC) 0.5 K/uL (0.7-4.9); Hematocrit 34.1 % (36.0-45.0); MPV 10.1 fL (7.6-11.3); RBC Red Blood Cell Count 3.81 M/uL (3.86-4.86)
[2020-09-12 04:51] LABS: ALT/SGPT 25 U/L (12-78); AST/SGOT 18 U/L (15-37); Albumin 2.5 g/dL (3.4-5.0); Alkaline Phosphatase 142 U/L (45-117); BUN Blood Urea Nitrogen 6 mg/dL (7-18); Bicarbonate 25 mmol/L (21-32); Bilirubin Direct 0.2 mg/dL (0-0.2); Bilirubin Total 0.4 mg/dL (0.2-1.0); Glucose Level 135 mg/dL (74-106); Magnesium 2.2 mg/dL (1.8-2.4); Potassium 4.1 mmol/L (3.5-5.1); Protein, Total 6.8 g/dL (6.4-8.2); Sodium Level 144 mmol/L (136-145)
[2020-09-12 05:14] LABS: Ferritin 135.5 ng/mL (8-388)
[2020-09-12] MEDS: ENOXAPARIN 40 MG/0.4 ML SQ SCH (08:18)
[2020-09-12] MEDS: dexAMETHasone 4 MG TAB PO SCH (08:18)
[2020-09-12] MEDS: CEFTRIAXONE/SWI 1gm 1 GM/10 ML SYR IV SCH (08:18)
[2020-09-12] MEDS: DULERA 200/5 (MOMETASONE/FORMOTEROL) INHALER IH SCH (08:18)
[2020-09-12 10:08] VITALS: O2SAT 95
--- NOTE | 2020-09-12 11:20 | RAD REPORT ---
EXAM DESCRIPTION: Betina Pa And Lat (2 Views)09/12/2020 7:16 am CLINICAL HISTORY: Cough COMPARISON: September 11, 2020 FINDINGS: No significant change in the diffuse bilateral pulmonary opacities. Heart is normal size IMPRESSION: No change in moderate bilateral pneumonia
[2020-09-12 12:09] VITALS: BP 141/76; TEMP 97.6
--- NOTE | 2020-09-12 17:31 | P.DS ---
Admission Date: 09/10/20 Discharge Date: 09/12/20 Primary Care Provider: Dr. Merissa Nicholson Disposition: ROUTINE DISCHARGE Discharge Condition: GOOD Reason for Admission: Shortness of breath Consultations: Pulm - Dr. Basurto Procedures: Bladder Ultrasound (09/10): FINDINGS: No urinary bladder mass or ureterocele is seen. Prevoid bladder volume 130 mL. Post void bladder volume is 1 mL. IMPRESSION: No significant PVR. CXR (09/10): FINDINGS: Mild to moderate patchy bilateral lung opacities. 2 centimeter lucency mid upper right lung Heart is normal size IMPRESSION: Mild to moderate bilateral patchy lung opacities probably pneumonia. 2 centimeter lucency mid to upper right lung probably normal aerated lung surrounded by pneumonia. Less likely a cavity. This should be monitored on follow-up chest x-ray CT Chest/Abd/PElvis (09/10): FINDINGS: Mild to moderate bilateral patchy lung opacities. No mediastinal or hilar lymphadenopathy No pericardial effusion. No pleural effusion. Several hepatic cysts. Spleen, pancreas and adrenals unremarkable. 2.7 centimeter right renal cyst. Several small low-density areas within the left kidney extending towards the periphery. Enhancement of the wall of the left renal pelvis and left ureter. No evidence of diverticulitis. Normal appendix IMPRESSION: Mild to moderate bilateral patchy lung opacities likely pneumonia Several small low-density areas within the left kidney extending to the periphery. Enhancement of the wall of the left renal pelvis and left ureter. This all likely indicates infection CXR (09/11): FINDINGS: The lungs are normal volume. Extensive bilateral mostly peripheral interstitial opacification is present with areas of scattered airspace opacification peripherally. Pattern shows slight worsening from the prior day study. Heart size is normal and central vasculature is within normal limits. No pleural effusion or pneumothorax seen. No acute bony finding noted. No aortic abnormality. IMPRESSION: Slight worsening of the bilateral pneumonia pattern compared to September 10. CXR (09/12): FINDINGS: No significant change in the diffuse bilateral pulmonary opacities. Heart is normal size IMPRESSION: No change in moderate bilateral pneumonia Problem List L Pyelonephritis acute hypoxia and cough with h/o COVid-19 infection mild C. diff colitis HTN hypothyroidism depression anxiety Brief History of Present Illness: 54 y/o F w/ HTN, hypothyroidism who presents today w/ worsening L sided flank pain x 3 days. She reports the pain started from her L hip area and radiates down to leg. She reports minimal relief w/ heating pad and aleve. She reports this pain has never this has never happened before. Pain was 10/10, and now is 6/10. She c/o fever, chills, nausea, vomiting, and increased urinary hesitancy. She also c/o productive cough and pleuritic pain that started around the same time as flank pain. She denies any abdominal pain, hematuria, dysuria. She was diagnosed w/ covid on August 20 but denies any respiratory symptoms at the time. She reports she only felt fatigued and was otherwise asymptomatic. The cough she is experiencing now is new and denies any SOB, wheezing, hemoptysis. In the ER she received azithromycin and ceftriaxone. WBC 11, procal 0.82, urine positive for nitrites and leukocytes Hospital Course: Treated empirically for pyelonephritis with IV rocephin. She had improvement in her CVA /flank tenderness/pain. She developed diarrhea overnight after admission, which tested positive for acute C.diff. She was started on PO vancomycin and had improvement of diarrhea. She did not have leukocytosis. Remained afebrile after admission. On day of discharge, she had a small, more formed stool, reported minimal pain, ambulating without shortness of breath. CXR and CT as noted above, concern for COVID-19 infection / residual effects. Pulmonology was consulted who recommended treatment with steroids. She had improvement and was discharged home. Medications on discharge: Flagyl - 12 days (vancomycin was too expensive) Levaquin - 12 days for pyelonephritis Prednisone Lactobacillus Follow up: PCP in 3-[address] Basurto in 1-2 weeks Vital Signs/Physical Exam: Temp Pulse Resp BP Pulse Ox 97.6 F 77 18 141/76 H 93 09/12/20 12:00 09/12/20 12:00 09/12/20 12:00 09/12/20 12:09/12/20 12:00 General: Alert, In no apparent distress, Oriented x3 HEENT: Atraumatic, PERRLA, EOMI, Sclerae nonicteric Respiratory: Clear to auscultation bilaterally, Diminished (at bases bilaterally) Cardiovascular: No edema, Regular rate/rhythm, Normal S1 S2 Gastrointestinal: Soft and benign, Non-distended, No tenderness Musculoskeletal: No erythema, No tenderness Integumentary: No rashes, No breakdown Neurological: Normal speech, Normal affect Laboratory Data at Discharge: WBC 4.20 K/uL (4.3-10.9) L D 09/12/20 03:26 Hgb 11.4 g/dL (12.0-15.0) L 09/12/20 03:26 Hct 34.1 % (36.0-45.0) L 09/12/20 03:26 Plt Count 295 K/uL (152-406) 09/12/20 03:26 PT 16.9 SECONDS (9.5-12.5) H 09/10/20 06:30 INR 1.46 09/10/20 06:30 Sodium 144 mmol/L (136-145) 09/12/20 03:26 Potassium 4.1 mmol/L (3.5-5.1) 09/12/20 03:26 BUN 6 mg/dL (7-18) L 09/12/20 03:26 Creatinine 0.63 mg/dL (0.55-1.3) 09/12/20 03:26 Glucose 135 mg/dL (74-106) H 09/12/20 03:26 Magnesium 2.2 mg/dL (1.8-2.4) 09/12/20 03:26 Total Bilirubin 0.4 mg/dL (0.2-1.0) 09/12/20 03:26 AST 18 U/L (15-37) 09/12/20 03:26 ALT 25 U/L (12-78) 09/12/20 03:26 Alkaline Phosphatase 142 U/L (45-117) H 09/12/20 03:26 Home Medications: Linaclotide [Linzess] 1 mg PO DAILY PRN 12/06/17 ARIPiprazole [Abilify*] 5 mg PO DAILY 02/25/19 Irbesartan/Hydrochlorothiazide [Avalide 300-12.5 mg Tablet] 1 each PO [id number] 02/25/19 Amlodipine Besylate 1 tab PO DAILY 09/10/20 Colesevelam HCl [Welchol] 6 tab PO DAILY 09/10/20 Duloxetine HCl 1 cap PO DAILY 09/10/20 Ergocalciferol (Vitamin D2) [Vitamin D2] 1 tab PO SEECOM 09/10/20 Levothyroxine Sodium [Levothyroxine] 1 tab PO DAILY 09/10/20 Metoprolol Succinate [Toprol Xl*] 1 tab PO DAILY 09/10/20 Pantoprazole Sodium 1 tab PO DAILY 09/10/20 Promethazine HCl 1 tab PO Q4H PRN 09/10/20 Lactobacillus Acidophilus [Intestinex] 680 mg PO DAILY 30 Days #30 capsule 09/12/20 Mometasone/Formoterol [Dulera 200 Mcg/5 Mcg Inhaler] 2 puff IH BID inhaler 09/12/20 levoFLOXacin [Levaquin] 750 mg PO DAILY 12 Days #12 tab 09/12/20 metroNIDAZOLE [Flagyl] 500 mg PO Q8H 12 Days #36 tablet 09/12/20 predniSONE [Deltasone*] 10 mg PO SEECOM 10 Days #15 tab 09/12/20 New Medications: predniSONE [Deltasone*] 10 mg PO SEECOM 10 Days #15 tab metroNIDAZOLE [Flagyl] 500 mg PO Q8H 12 Days #36 tablet Lactobacillus Acidophilus [Intestinex] 680 mg PO DAILY 30 Days #30 capsule levoFLOXacin [Levaquin] 750 mg PO DAILY 12 Days #12 tab Physician Discharge Instructions: You were found to have a kidney infection, and residual damage from COVID-19 infection. You were treated with antibiotics and steroids. You had improvement of your symptoms and discharged to continue treatment at home. You also developed diarrhea and tested positive for C. diff infection. You improved with antibiotics as well, and will be discharged with 12 more days of antibiotics. Follow up with your PCP in 3-5 days. Follow up with Dr. Basurto in ~1-2 weeks. Please return to ED if you symptoms worsen. Diet: Regular Activity: Ad tati Followup: Jurgen Basurto MD [ACTIVE - CAN ADMIT] - 1-2 Weeks (Call for appointment.) NONE,NONE [Primary Care Provider] - 1-2 Weeks (Call for appointment.)
== END 2020-09-12 15:41 | disposition home or self-care (01) | DRG 689 ==
LOC: ER 06:02 → ERHOLD 10:55 → 4TH 14:05
PROVIDERS: ADMIT Hospitalist; ATTEND Hospitalist
DX: N12 Tubulo-interstitial nephritis, not specified as acute or chronic (principal); J18.9 Pneumonia, unspecified organism; A04.72 Enterocolitis due to Clostridium difficile, not specified as recurrent; I10 Essential (primary) hypertension; E03.9 Hypothyroidism, unspecified; F41.8 Other specified anxiety disorders; B94.8 Sequelae of other specified infectious and parasitic diseases; R09.02 Hypoxemia; Z20.822 Contact with and (suspected) exposure to COVID-19
CPT/HCPCS: 36415; 71045; 71046; 71260; 74177; 76857; 80048; 80076; 81003; 82728; 83605; 83735; 83880; 84145; 84484; 85025; 85610; 86140; 87040; 87045; 87046; 87086; 87088; 87324; 87449; 93005; 94760; 96365; 96366; 96375; 99285; J0456; J0696; J1650; J2405; J7030; J7050; J7606; J8540; Q9967; U0003

== ENCOUNTER 2021-04-06 15:00 | Emergency (ER) | payer SELFPAY ==
--- OUTSIDE RECORDS SUMMARY | 2021-04-06 15:03 | XMS REPORT | Continuity of Care Document ---
:[address] [facility] t Address [address] [place] [address] Care Team Providers Name Role Phone JESUS_Jeniffer Attending Clinician Unavailable Rosanna Nicholson Attending Clinician [phone] Derick Damon MD Attending Clinician DERICK DAMON Attending Clinician Unavailable DERICK DAMON Attending Clinician Unavailable MACHO Attending Clinician Unavailable MAXIMO Admitting Clinician Unavailable Payers Payer Name Policy Type Policy Number Effective Date Expiration Date S [facility] - [id number] 2018 00:00:00 OUT OF STATE Problems This patient has no known problems. Allergies, Adverse Reactions, Alerts Allergy Allergy Status Severity Reaction(s) Onset Inactive Treating Comm ents Source Name Type Date Date Clinician NO KNOWN Drug Active Univers [facility] Class ity of S [facility] Medications This patient has no known medications. Procedures This patient has no known procedures. Encounters Start End Encounter Admission Attending Care Care Encounter Source Date/Time Date/Time Type Type Clinicians Facility Department ID 2020-08-09 2020-08-09 Outpatient MAXIMO [facility] [id number] [place] 04:42:00 04:42:00 [facility] 2020-08-09 2020-08-09 Outpatient Merissa Nicholson [facility] [id number] 00:00:00 00:00:00 Rosanna [id number] 2020-08-06 2020-08-06 Office Marisol [facility] [id number] 14:38:08 16:24:50 Visit Linh Echavarria [id number] [place] [id number] Professio [id number] [facility] 092 [facility] 2020-08-06 2020-08-06 Outpatient LINH VÁZQUEZ [facility] [id number] Univers 14:40:00 14:40:00 LINH DAMON [id number] [facility] 2020-08-06 2020-08-06 Outpatient LINH VÁZQUEZ [facility] [id number] [facility] 14:40:00 14:40:00 LINH DAMON [facility] 2020-07-23 2020-07-23 Outpatient JESUS_A [facility] [id number] [place] 12:56:00 12:56:00 [facility] 2020-02-10 2020-02-10 Outpatient JESUS_Jeniffer [facility] [id number] [place] 05:03:00 05:03:00 [facility] 2019-06-17 2019-06-17 Outpatient Kyle PRITCHARD [facility] [id number] [facility] 09:30:00 09:30:00 JIAN [facility] Results This patient has no known results.
[2021-04-06] MEDS ORDERED: ASPIRIN 81 MG CHEWABLE TABLET ONE (16:38)
[2021-04-06 16:46] LABS: Absolute Lymphocytes (CBC) 2.7 K/uL (0.7-4.9); Hematocrit 39.4 % (36.0-45.0); Lymphocytes % 40.1 % (15.3-44.8); MPV 8.7 fL (7.6-11.3); RBC Red Blood Cell Count 4.29 M/uL (3.86-4.86)
[2021-04-06 16:47] LABS: Protime INR 1.08
[2021-04-06 17:05] LABS: Albumin 3.8 g/dL (3.4-5.0); Bilirubin Direct 0.1 mg/dL (0-0.2); Bilirubin Total 0.5 mg/dL (0.2-1.0); Magnesium 2.5 mg/dL (1.8-2.4); Potassium 3.9 mmol/L (3.5-5.1); Protein, Total 7.8 g/dL (6.4-8.2); Troponin High Sensitivity 6.3 pg/mL (<58.9)
--- NOTE | 2021-04-06 17:16 | RAD REPORT ---
EXAM DESCRIPTION: RAD - Chest Single View - 04/06/2021 5:10 pm CLINICAL HISTORY: CHEST PAIN Chest pain. COMPARISON: Chest Pa And Lat (2 Views) dated 09/12/2020; Chest Pa And Lat (2 Views) dated 09/11/2020; Chest Single View dated 09/10/2020; Chest Single View dated 05/29/2019 FINDINGS: Portable technique limits examination quality. The lungs are grossly clear. The heart is normal in size. No displaced fractures. IMPRESSION: No acute intrathoracic process suspected.
--- NOTE | 2021-04-06 21:27 | ER ---
Nurse's Notes [facility] Name: Ofe Patel Age: 55 yrs Sex: Female : 1965 Arrival Date: 04/06/2021 Time: 15:30 Bed 12 Private MD: Diagnosis: Pain in left arm Presentation: 04/06 16:16 Chief complaint: Patient states: "My left arm has been shooting pain up through my left jd3 arm and into my chest.". Coronavirus screen: At this time, the client does not indicate any symptoms associated with coronavirus-19. Ebola Screen: No symptoms or risks identified at this time. Initial Sepsis Screen: Does the patient meet any 2 criteria? No. Patient's initial sepsis screen is negative. Does the patient have a suspected source of infection? No. Patient's initial sepsis screen is negative. Risk Assessment: Do you want to hurt yourself or someone else? Patient reports no desire to harm self or others. Onset of symptoms was April 06, 2021. 16:16 Method Of Arrival: Ambulatory jd3 16:16 Acuity: INGRID 3 jd3 HOSPITALITY INTERNSHIP: 16:20 LMP N/A - Hysterectomy jd3 Historical: - Allergies: 16:17 NKA; jd3 - Home Meds: 16:17 aripiprazole 5 mg Oral tab 1 tab once daily [Active]; amlodipine [Active]; duloxetine jd3 oral [Active]; levothyroxine oral [Active]; WelChol oral [Active]; irbesartan-hydrochlorothiazide 300-12.5 mg Oral tab 1 tab once daily [Active]; Metoprolol Tartrate Oral [Active]; Vitamin D Oral [Active]; Linzess 290 mcg oral cap [Active]; - PMHx: 16:17 Depression; GERD; Hormone Replacement; Anxiety; Hypertension; Hypothyroidism; jd3 - Immunization history:: Adult Immunizations up to date. - Social history:: Smoking status: unknown. Screenin:44 Abuse screen: Denies threats or abuse. Nutritional screening: No deficits noted. bb Tuberculosis screening: No symptoms or risk factors identified. Fall Risk None identified. Assessment: 16:55 General: Appears in no apparent distress. uncomfortable, Behavior is calm, cooperative, jd3 appropriate for age. Pain: Complains of pain in chest and left arm. Neuro: Level of Consciousness is awake, alert, obeys commands, Oriented to person, place, time, situation. Cardiovascular: Capillary refill < 3 seconds Patient's skin is warm and dry. Rhythm is regular. Respiratory: Airway is patent Respiratory effort is even, unlabored, Respiratory pattern is regular, symmetrical, Denies cough, shortness of breath. GI: No signs and/or symptoms were reported involving the gastrointestinal system. : No signs and/or symptoms were reported regarding the genitourinary system. EENT: No signs and/or symptoms were reported regarding the EENT system. Derm: Skin is intact, Skin is dry, Skin is normal, Skin temperature is warm. Musculoskeletal: Circulation, motion, and sensation intact. Range of motion: intact in all extremities. 18:30 Reassessment: No changes from previously documented assessment. Patient and/or family jd3 updated on plan of care and expected duration. Pain level reassessed. Patient is alert, oriented x 3, equal unlabored respirations, skin warm/dry/pink. 21:43 Reassessment: Patient is alert, oriented x 3, equal unlabored respirations, skin bb warm/dry/pink. pt seen by this RN at discharge pt verbalized understanding of and agrees to plan of care discharge instructions given pt ambulated with steady gait to exit. Vital Signs: 16:20 BP 206 / 97; Pulse 70; Resp 18 S; Temp 97.7(TE); Pulse Ox 100% on R/A; Weight 81.65 kg jd3 (R); Height 5 ft. 4 in. (162.56 cm) (R); Pain 7/10; 20:29 BP 161 / 79 RA Sitting (auto/reg); Pulse 72 MON; Resp 14 S; Temp 97.8; Pulse Ox 100% ; ds4 Pain 1/10; 16:20 Body Mass Index 30.90 (81.65 kg, 162.56 cm) jd3 ED Course: 15:30 Patient arrived in ED. ds1 16:17 Triage completed. jd3 16:20 Arm band placed on. jd3 16:21 [facility]. kb 16:21 Cody Reaves MD is Attending Physician. kb 16:36 Hank Cheney RN is Primary Nurse. jd3 17:10 XRAY Chest (1 view) In Process Unspecified. EDMS 21:44 Patient has correct armband on for positive identification. bb 21:44 No provider procedures requiring assistance completed. IV discontinued, intact, bb bleeding controlled, No redness/swelling at site. Pressure dressing applied. Administered Medications: 16:36 Drug: Aspirin Chewable Tablet 324 mg Route: PO; jd3 17:30 Follow up: Response: No adverse reaction jd3 Outcome: 21:26 Discharge ordered by . smith :44 Discharged to home ambulatory. bb 21:44 Condition: stable 21:44 Discharge instructions given to patient, Instructed on discharge instructions, follow up and referral plans. medication usage, Demonstrated understanding of instructions, follow-up care, medications, Prescriptions given X 1. 21:45 Patient left the ED. bb Signatures: Dispatcher [employer] EDCT Korin New, CHOPPED STRAND OPERATOR-C CHOPPED STRAND OPERATOR-Vane Melgar ds1 Caitlyn Blas, RN RN bb Joel Brown ds4 Hank Cheney RN RN jd3
--- NOTE | 2021-04-06 21:27 | EDPHYS ---
Physician Documentation [facility] Name: Ofe Patel Age: 55 yrs Sex: Female : 1965 Arrival Date: 04/06/2021 Time: 15:30 Bed 12 Private MD: ED Physician Cody Reaves HPI: 04/06 16:41 This 55 yrs old Female presents to ER via Ambulatory with complaints of Chest kb pain. 16:41 The patient or guardian reports chest pain that is located primarily in the anterior kb chest wall, left. Onset: 3 day(s) ago. The pain radiates to the left arm. Associated signs and symptoms: The patient has no apparent associated signs or symptoms. The chest pain is described as aching. Duration: The patient or guardian reports a single episode. Modifying factors: The symptoms are alleviated by nothing. the symptoms are aggravated by nothing. Severity of pain: At its worst the pain was moderate in the emergency department the pain is unchanged. The patient has not experienced similar symptoms in the past. The patient has not recently seen a physician. 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 - Social history:: Smoking status: unknown. ROS: 16:40 Constitutional: Negative for fever, chills, and weight loss. kb 16:40 Cardiovascular: Positive for chest pain, Negative for edema, orthopnea, palpitations, paroxysmal nocturnal dyspnea. 16:40 MS/extremity: Positive for pain, of the left arm. 16:40 All other systems are negative. Exam: 16:39 Constitutional: This is a well developed, well nourished patient who is awake, alert, kb and in no acute distress. Head/Face: Normocephalic, atraumatic. ENT: Moist Mucous membranes Chest/axilla: Normal chest wall appearance and motion. Cardiovascular: Regular rate and rhythm with a normal S1 and S2. No gallops, murmurs, or rubs. No pulse deficits. Respiratory: Respirations even and unlabored. No increased work of breathing. Talking in full sentences Abdomen/GI: Soft, non-tender. No distention Skin: Warm, dry with normal turgor. Normal color. MS/ Extremity: Pulses equal, no cyanosis. Neurovascular intact. Full, normal range of motion. Neuro: Awake and alert, GCS 15, oriented to person, place, time, and situation. Moves all extremities. Normal gait. Psych: Awake, alert, with orientation to person, place and time. Behavior, mood, and affect are within normal limits. 16:39 ECG was reviewed by the Attending Physician. Vital Signs: 16:20 BP 206 / 97; Pulse 70; Resp 18 S; Temp 97.7(TE); Pulse Ox 100% on R/A; Weight 81.65 kg jd3 (R); Height 5 ft. 4 in. (162.56 cm) (R); Pain 7/10; 20:29 BP 161 / 79 RA Sitting (auto/reg); Pulse 72 MON; Resp 14 S; Temp 97.8; Pulse Ox 100% ; ds4 Pain 1/10; 16:20 Body Mass Index 30.90 (81.65 kg, 162.56 cm) jd3 MDM: 16:21 Patient medically screened. kb 16:40 Data reviewed: vital signs, nurses notes. Data interpreted: Pulse oximetry: on room air kb is 100 %. Interpretation: normal. 21:25 Counseling: I had a detailed discussion with the patient and/or guardian regarding: the kb historical points, exam findings, and any diagnostic results supporting the discharge/admit diagnosis, lab results, radiology results, the need for outpatient follow up, a family practitioner, to return to the emergency department if symptoms worsen or persist or if there are any questions or concerns that arise at home. 04/06 16:21 Order name: Basic Metabolic Panel; Complete Time: 17:08 kb 04/06 16:21 Order name: CBC with Diff; Complete Time: 17:01 kb 04/06 16:21 Order name: LFT's; Complete Time: 17:08 kb 04/06 16:21 Order name: Magnesium; Complete Time: 17:08 kb 04/06 16:21 Order name: NT PRO-BNP; Complete Time: 17:08 kb 04/06 16:21 Order name: PT-INR; Complete Time: 16:49 kb 04/06 16:21 Order name: Troponin HS; Complete Time: 17:08 kb 04/06 16:21 Order name: XRAY Chest (1 view); Complete Time: 17:21 kb 04/06 16:21 Order name: EKG; Complete Time: 16:22 kb 04/06 16:21 Order name: Cardiac monitoring; Complete Time: 16:36 kb 04/06 16:27 Order name: COVID-19 SARS RT PCR (Document "Date of Onset" if Symptomatic); Complete kb Time: 17:31 04/06 18:10 Order name: Troponin HS; Complete Time: 21:25 kb 04/06 18:10 Order name: EKG; Complete Time: 18:12 kb 04/06 16:21 Order name: EKG - Nurse/Tech; Complete Time: 16:36 kb 04/06 16:21 Order name: IV Saline Lock; Complete Time: 16:36 kb 04/06 16:21 Order name: Labs collected and sent; Complete Time: 16:36 kb 04/06 16:21 Order name: O2 Per Protocol; Complete Time: 16:36 kb 04/06 16:21 Order name: O2 Sat Monitoring; Complete Time: 16:36 kb 04/06 18:10 Order name: EKG - Nurse/Tech; Complete Time: 20:22 kb 04/06 20:09 Order name: Vital Signs; Complete Time: 20:30 kb EC:39 Rate is 68 beats/min. Rhythm is regular. QRS Ackley is Normal. MT interval is normal at kb 132 msec. QRS interval is normal at 82 msec. QT interval is normal at 446 msec. Administered Medications: 16:36 Drug: Aspirin Chewable Tablet 324 mg Route: PO; jd3 17:30 Follow up: Response: No adverse reaction jd3 Disposition: 04/07 07:12 Co-signature as Attending Physician, Cody Reaves MD I agree with the assessment and kdr plan of care. Disposition Summary: 01/19/22 21:26 Discharge Ordered Location: Home kb Condition: Stable kb Diagnosis - Pain in left arm kb Followup: kb - With: Emergency Department - When: As needed - Reason: Worsening of condition Followup: kb - With: Private Physician - When: 2 - 3 days - Reason: Recheck today's complaints, Continuance of care, Re-evaluation by your physician Discharge Instructions: - Discharge Summary Sheet kb - Musculoskeletal Pain kb Forms: - Medication Reconciliation Form kb - Thank You Letter kb - Antibiotic Education kb - Prescription Opioid Use kb Prescriptions: - Cyclobenzaprine 10 mg Oral Tablet - take 1 tablet by ORAL route every 8 hours As needed; 21 tablet; Refills: 0, kb Product Selection Permitted - Diclofenac Sodium 75 mg Oral tablet,delayed release (DR/EC) - take 1 tablet by ORAL route 2 times per day As needed; 30 tablet; Refills: 0, kb Product Selection Permitted Signatures: Dispatcher [employer] EDMS Korin New, AUDELIA-C Cody Kumar MD MD kdr Davies, Jonathon RN RN jd3
[2021-04-06 21:54] VITALS: O2SAT 100
[2021-04-06 21:59] VITALS: BP 161/79; TEMP 97.8
== END 2021-04-06 21:45 | disposition home or self-care (01) ==
LOC: ER 15:00
DX: M79.602 Pain in left arm (principal); I10 Essential (primary) hypertension; E03.9 Hypothyroidism, unspecified
CPT/HCPCS: 36415; 71045; 80048; 80076; 83735; 83880; 84484; 85025; 85610; 93005; 99283; U0003

== ENCOUNTER 2021-09-04 12:18 | Emergency (ER) | payer SELFPAY ==
--- OUTSIDE RECORDS SUMMARY | 2021-09-04 12:21 | XMS REPORT | Continuity of Care Document ---
:1965 Author Organization [facility] t Address [address] [place] [address] Care Team Providers Name Role Phone JESUS_Jeniffer Attending Clinician Unavailable Rosanna Nicholson Attending Clinician [phone] Derick Damon MD Attending Clinician DERICK DAMON Attending Clinician Unavailable DERICK DAMON Attending Clinician Unavailable MACHO Attending Clinician Unavailable MAXIMO Admitting Clinician Unavailable Payers Payer Name Policy Type Policy Number Effective Date Expiration Date S [facility] - [id number] 2018 00:00:00 OUT OF STATE Problems This patient has no known problems. Allergies, Adverse Reactions, Alerts Allergy Allergy Status Severity Reaction(s) Onset Inactive Treating Comm ents Source Name Type Date Date Clinician NO KNOWN Drug Active [facility] Medications This patient has no known medications. Procedures This patient has no known procedures. Encounters Start End Encounter Admission Attending Care Care Encounter Source Date/Time Date/Time Type Type Clinicians Facility Department ID 2020-08-09 2020-08-09 Outpatient MAXIMO [facility] [id number] [place] 04:42:00 04:42:00 [facility] 2020-08-09 2020-08-09 Outpatient Merissa Nicholson [facility] [id number] 00:00:00 00:00:00 Rosanna [id number] 2020-08-06 2020-08-06 Office Marisol [facility] [id number] 14:38:08 16:24:50 Visit Linh Echavarria [id number] [place] [id number] Professio [id number] [facility] 092 [facility] 2020-08-06 2020-08-06 Outpatient LINH VÁZQUEZ [facility] [id number] Univers 14:40:00 14:40:00 LINH DAMON [id number] [facility] 2020-08-06 2020-08-06 Outpatient LINH VÁZQUEZ [facility] [id number] [facility] 14:40:00 14:40:00 LINH DAMON [facility] 2020-07-23 2020-07-23 Outpatient JESUS_A [facility] [id number] [place] 12:56:00 12:56:00 [facility] 2020-02-10 2020-02-10 Outpatient JESUS_Jeniffer [facility] [id number] [place] 05:03:00 05:03:00 [facility] 2019-06-17 2019-06-17 Outpatient Kyle PRITCHARD [facility] [id number] Univers 09:30:00 09:30:00 JIAN [facility] Results This patient has no known results.
[2021-09-04] MEDS ORDERED: HYDROCODONE/APAP 7.5/325 MG TAB ONE (12:52)
[2021-09-04] MEDS ORDERED: methocarbamoL 500 MG TAB ONE (12:52)
[2021-09-04] MEDS ORDERED: dexAMETHasone 10 MG/ML VIAL ONE (12:52)
--- NOTE | 2021-09-04 13:41 | RAD REPORT ---
EXAM DESCRIPTION: RAD - C Spine Ap/Lat - 09/04/2021 1:14 pm CLINICAL HISTORY: PAIN COMPARISON: No comparisons FINDINGS: No acute fracture. No malalignment. No significant focal degenerative changes. IMPRESSION: No acute osseous abnormality involving the cervical spine.
--- NOTE | 2021-09-04 13:56 | EDPHYS ---
Physician Documentation [facility] Name: Ofe Patel Age: 55 yrs Sex: Female : 1965 Arrival Date: 09/04/2021 Time: 12:20 Bed 5 Private MD: ED Physician Rena Garrido HPI: 09/04 12:38 This 55 yrs old Female presents to ER via Ambulatory with complaints of Arm en Pain, Shoulder Pain, Hand Pain. 12:38 55 yo F with no PMH presents to ED with right sided neck pain radiating to right en periscapular area and right hand x 10d. No Trauma. Reports weakness in right arm and tingling to fingers. No swelling or deformity. Denies CP, SOB, ISAACS, No F/C/n/V.. 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 - Social history:: Smoking status: Patient denies any tobacco usage or history of. ROS: 12:38 Constitutional: Negative for fever, chills, and weight loss. en 12:38 Constitutional: Negative for body aches, chills, fatigue, fever. 12:38 Neck: Positive for pain with movement, right sided neck pain with movement. 12:38 Cardiovascular: Negative for chest pain. 12:38 Respiratory: Negative for cough, shortness of breath. 12:38 MS/extremity: Positive for right arm pain, numbness, weakness. 12:38 All other systems are negative. Exam: 12:38 Constitutional: This is a well developed, well nourished patient who is awake, alert, en and in no acute distress. 12:38 Constitutional: The patient appears Visibly umcomfortable 2/2 pain 12:38 Eyes: Conjunctiva: normal, no exudate, no injection. 12:38 Neck: ROM/movement: mild tightness to right side of neck with flex/ext of neck. No midline TTP. 12:38 Cardiovascular: Rate: normal, Rhythm: regular, Pulses: no pulse deficits are appreciated, Heart sounds: normal, no murmur, no rub, no gallop. 12:38 Respiratory: the patient does not display signs of respiratory distress, Respirations: normal, Breath sounds: are clear throughout, no rales, rhonchi, no stridor, no wheezing. 12:38 Abdomen/GI: Inspection: abdomen appears normal. 12:38 Back: ROM is normal, painless. 12:38 Musculoskeletal/extremity: FROM BUE/LE. 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 No wrist drop. 2+ Distal pulses.. 12:38 Skin: no rash present. 12:38 Neuro: Orientation: appropriate for stated age, to person, place \T\ time. Mentation: is normal, appropriate for stated age, Motor: is normal, Sensation: is normal, flights decreased sensation in radial nerve distribution of right hand., Gait: is steady, Deep tendon reflexes are 2+ (normal) in the right bicep, right brachioradialis, left bicep and left brachioradialis. 12:38 Psych: Behavior/mood is pleasant, cooperative, Affect is calm. Vital Signs: 12:30 BP 181 / 84; Pulse 89; Resp 17; Temp 99.7(O); Pulse Ox 99% ; Weight 37.19 kg; Height 5 gates ft. 4 in. (162.56 cm); 12:30 Body Mass Index 14.08 (37.19 kg, 162.56 cm) gates MDM: 12:36 Patient medically screened. en 12:38 Differential diagnosis: Strain, tendonitis, rotator cuff injury, cervical en radiculopathy. Data reviewed: vital signs, nurses notes, radiologic studies, and as a result, I will manage pain. . ED course: Spoke with pt regarding XR vs MRI and need to f/u with PCP. 13:54 ED course: reviewed imaging with pt. Normal alignment. Will d/c home with medication en and PCP f/u. ER return precautions reviewed. . 09/04 12:38 Order name: XRAY C Spine Ap/lat; Complete Time: 13:53 en Administered Medications: 12:50 Drug: [place] (HYDROcodone-acetaminophen) (7.5 mg-325 mg) 1 tabs Route: PO; jg9 13:20 Follow up: Response: No adverse reaction; Pain is unchanged, physician notified jg9 12:51 Drug: Decadron (dexamethasone) 10 mg Route: IM; Site: right deltoid; jg9 13:20 Follow up: Response: No adverse reaction; Pain is unchanged, physician notified jg9 12:52 Drug: Methocarbamol 750 mg Route: PO; jg9 13:19 Follow up: Response: No adverse reaction; No change in condition jg9 Disposition Summary: 09/04/21 13:55 Discharge Ordered Location: Home en Problem: new en Symptoms: have improved en Condition: Stable en Diagnosis - Radiculopathy, cervical region en Followup: en - With: Trey Ratliff MD - When: 2 - 3 days - Reason: Discharge Instructions: - Discharge Summary Sheet en - Cervical Radiculopathy en Forms: - Medication Reconciliation Form en - Thank You Letter en - Antibiotic Education en - Prescription Opioid Use en Prescriptions: - ketorolac 10 mg Oral tablet - take 1 tablet by ORAL route every 6 hours for up to 5 days total use; 15 en tablet; Refills: 0, Product Selection Permitted - Medrol (Hardeep) 4 mg Oral Tablets, Dose Pack - take 1 tablet by ORAL route as directed - follow package instructions; 1 en packet; Refills: 0, Product Selection Permitted - methocarbamol 750 mg Oral Tablet - take 2 tablets by ORAL route 3 times per day; 30 tablet; Refills: 0, Product en Selection Permitted Signatures: Dispatcher [employer] Charisma Wilde RN RN jg9 Vanessa Walters RN RN ha Newkirk, Elizabeth, PA PA en
--- NOTE | 2021-09-04 13:56 | ER ---
Nurse's Notes [facility] Name: Ofe Patel Age: 55 yrs Sex: Female : 1965 Arrival Date: 09/04/2021 Time: 12:20 Bed 5 Private MD: Diagnosis: Radiculopathy, cervical region Presentation: 09/04 12:30 Chief complaint: Patient states: right shoulder, arm and hand pain x 10days denies gates trauma. Coronavirus screen: Vaccine status: Patient reports being unvaccinated. Ebola Screen: Patient denies travel to an Ebola-affected area in the 21 days before illness onset. Initial Sepsis Screen: Does the patient meet any 2 criteria? No. Patient's initial sepsis screen is negative. Does the patient have a suspected source of infection? No. Patient's initial sepsis screen is negative. Risk Assessment: Do you want to hurt yourself or someone else? Patient reports no desire to harm self or others. Onset of symptoms was August 25, 2021. 12:30 Method Of Arrival: Ambulatory gates 12:30 Acuity: INGRID 4 gates Triage Assessment: 12:32 General: Appears in no apparent distress. Behavior is calm, cooperative. 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 - Social history:: Smoking status: Patient denies any tobacco usage or history of. Screenin:29 Abuse screen: Denies threats or abuse. Denies injuries from another. Nutritional gates screening: No deficits noted. Tuberculosis screening: No symptoms or risk factors identified. Fall Risk None identified. Assessment: 12:29 Pain: Complains of pain in right arm and right hand. Musculoskeletal: Range of motion: gates limited in right shoulder, right elbow and right wrist Reports Pain is 6 out of 10 on a pain scale. 13:19 Reassessment: No changes from previously documented assessment. Patient and/or family jg9 updated on plan of care and expected duration. Pain level reassessed. patient reports that she is still unable to lift her arm and the medication's we gave have not helped her pain. Vital Signs: 12:30 BP 181 / 84; Pulse 89; Resp 17; Temp 99.7(O); Pulse Ox 99% ; Weight 37.19 kg; Height 5 gates ft. 4 in. (162.56 cm); 12:30 Body Mass Index 14.08 (37.19 kg, 162.56 cm) gates ED Course: 12:20 Patient arrived in ED. mr 12:21 Gabrielle Cavanaugh PA is PHCP. en 12:22 Rena Garrido MD is Attending Physician. en 12:23 Vanessa Walters, RN is Primary Nurse. gates 12:29 Patient has correct armband on for positive identification. Bed in low position. gates 12:29 No provider procedures requiring assistance completed. gates 12:32 Triage completed. gates 12:32 Arm band placed on. gates 13:16 XRAY C Spine Ap/lat In Process Unspecified. EDMS 13:55 Trey Ratliff MD is Referral Physician. en 14:13 IV discontinued, intact, Pressure dressing applied. gates Administered Medications: 12:50 Drug: [place] (HYDROcodone-acetaminophen) (7.5 mg-325 mg) 1 tabs Route: PO; jg9 13:20 Follow up: Response: No adverse reaction; Pain is unchanged, physician notified jg9 12:51 Drug: Decadron (dexamethasone) 10 mg Route: IM; Site: right deltoid; jg9 13:20 Follow up: Response: No adverse reaction; Pain is unchanged, physician notified jg9 12:52 Drug: Methocarbamol 750 mg Route: PO; jg9 13:19 Follow up: Response: No adverse reaction; No change in condition jg9 Medication: 12:29 VIS not applicable for this client. gates Outcome: 13:55 Discharge ordered by . en 14:12 Discharged to home ambulatory. gates 14:12 Condition: good 14:12 Discharge instructions given to patient, Prescriptions given X 3. 14:13 Patient left the ED. kody Signatures: Dispatcher [employer] JENI IsmaTerra mr FarrisCharisma RN RN jg9 SelenaStagerVanessa RN RN ha [place]kirk, Elizabeth, PA PA en Corrections: (The following items were deleted from the chart) 13:28 13:19 Reassessment: No changes from previously documented assessment. Patient and/or jg9 family updated on plan of care and expected duration. Pain level reassessed. [email or web address]
[2021-09-04 14:17] VITALS: BP 181/84; TEMP 99.7; O2SAT 99
== END 2021-09-04 14:13 | disposition home or self-care (01) ==
LOC: ER 12:18
DX: M54.12 Radiculopathy, cervical region (principal); I10 Essential (primary) hypertension; F32.A Depression, unspecified; F41.9 Anxiety disorder, unspecified; E03.9 Hypothyroidism, unspecified
CPT/HCPCS: 72040; 96372; 99283; J1100

== ENCOUNTER 2022-01-12 17:54 | Emergency (ER) | payer SELFPAY ==
--- OUTSIDE RECORDS SUMMARY | 2022-01-12 17:58 | XMS REPORT | Continuity of Care Document ---
:1965 Author Organization [facility] t Address [address] [place] [address] Care Team Providers Name Role Phone KEBRADLY_Jeniffer Attending Clinician Unavailable Merissa Nicholson Attending Clinician [phone] Marcel Damon MD Attending Clinician MARCEL DAMON Attending Clinician Unavailable MARCEL DAMON Attending Clinician Unavailable JIAN PRITCHARD Attending Clinician Unavailable JESUS_Jeniffer Admitting Clinician Unavailable Payers Payer Name Policy Type Policy Number Effective Date Expiration Date S [facility] - [id number] 2018 00:00:00 OUT OF STATE Problems Condition Condition Condition Status Onset Resolution Last Treating Co mments Source Name Details Category Date Date Treatment Clinician Date Obstructiv Obstructiv Problem Active 2019-03 S [facility] e sleep e Sleep 007 Communi apnea Apnea 00:00: ty syndrome Syndrome 00 [facility] Constipati Constipati Problem Active 2019- S [facility] on on 12-09 Communi 00:00: ty 00 [facility] Easy Easy Problem Active [place] bruising Bruising 12-09 Commun i 00:00: ty [facility] Clinics Acute Acute Problem Active [place] right Right 11-25 Commun[facility] otitis Otitis 00:00: ty [facility] Problem Active 2018-03 [place] maxillary Maxillary 1-25 Comm uni sinusitis Sinusitis 00:00: ty 00 [facility] Vasovagal Vasovagal Problem Active 2018-03 [place] syncope Syncope 0-22 Communi 00:00: ty 00 [facility] Seasonal Seasonal Problem Active [place] allergic Allergic 12-11 Commun i rhinitis Rhinitis 00:00: ty 00 [facility] Resting Resting Problem Active 2017-03 [place] tremor Tremor 1-14 Communi 00:00: ty 00 [facility] Pleurisy Pleurisy Problem Active [place] 807 Communi 00:00: ty 00 [facility] Elevated Elevated Problem Active [place] liver Liver 6 [facility] enzymes Enzymes 00:00: ty level Level 00 [facility] eye [place] Eye Problem Active [place] disease Disease 08-15 Communi 00:00: ty 00 [facility] Long-term Long-term Problem Active [place] drug Drug 08-15 [facility] therapy Therapy 00:00: ty 00 [facility] Hypothyroi Hypothyroi Problem Active S [facility] dism dism 06-25 Communi 00:00: ty 00 [facility] Hyperlipid Hyperlipid Problem Active S [facility] emia emia 06-25 Communi 00:00: ty 00 [facility] Hypertensi Hypertensi Problem Active S [facility] ve ve 06-25 Communi disorder Disorder 00:00: ty 00 [facility] Steatosis Steatosis Problem Active [place] of liver of Liver 06-25 Commun i 00:00: ty 00 [facility] Abnormal Abnormal Problem Active [place] weight Weight 06-25 [facility] gain Gain 00:00: ty 00 [facility] Abdominal Abdominal Problem Active [place] bloating Bloating 06-25 Commun i 00:00: ty 00 [facility] Allergies, Adverse Reactions, Alerts Allergy Allergy Status Severity Reaction(s) Onset Inactive Treating Comm ents Source Name Type Date Date Clinician NO KNOWN Drug Active Univers ALLERGIE Class ity of S [facility] Social History Smoking Status Start Date Stop Date Source Never Smoker [facility] Medications Ordered Filled Start Stop Current Ordering Indication Dosage Frequency Signature Comments Components Source Medication Medication Date Date Medication? Clinician (SIG) Name Name amlodipine amlodipine No amlodipine [place] 10 mg 10 mg 10 mg Communi tablet TAKE tablet TAKE tablet ty 1 TABLET BY 1 TABLET BY TAKE 1 Hospita MOUTH EVERY MOUTH EVERY TABLET BY l DAY DAY MOUTH Clinics EVERY DAY aripiprazol aripiprazol No aripiprazo [place] e 5 mg e 5 mg le 5 mg Communi tablet TAKE tablet TAKE tablet ty 1 TABLET BY 1 TABLET BY TAKE 1 Hospita MOUTH EVERY MOUTH EVERY TABLET BY l DAY DAY MOUTH Clinics EVERY DAY cefdinir cefdinir No 1capsul Q12H cefdinir [place] 300 mg 300 mg e(s) 300 mg Communi capsule capsule capsule ty Take 1 Take 1 Take 1 Hospita capsule capsule capsule l every 12 every 12 every 12 Cli nics hours by hours by hours by oral route oral route oral route for 10 for 10 for 10 days. days. days. duloxetine duloxetine No duloxetine [place] 60 mg 60 mg 60 mg Communi capsule,del capsule,del capsule,de ty ayed ayed layed Hospita release release release l TAKE 1 TAKE 1 TAKE 1 Clinics CAPSULE BY CAPSULE BY CAPSULE BY MOUTH EVERY MOUTH EVERY MOUTH DAY DAY EVERY DAY ergocalcife ergocalcife No ergocalcif [place] rol silvia neo Jose Di (vitamin (vitamin (vitamin ty D2) 1,250 D2) 1,250 D2) 1,250 Hospita mcg (50,000 mcg (50,000 mcg l unit) unit) (50,000 Clinics capsule capsule unit) TAKE 1 TAKE 1 capsule CAPSULE BY CAPSULE BY TAKE 1 MOUTH ONE MOUTH ONE CAPSULE BY TIME PER TIME PER MOUTH ONE WEEK WEEK TIME PER WEEK irbesartan irbesartan No irbesartan [place] 300 300 300 Communi mg-hydrochl mg-hydrochl mg-hydroch ty orothiazide orothiazide lorothiazi Hospita 12.5 mg 12.5 mg de 12.5 mg l tablet TAKE tablet TAKE tablet Clinics 1 TABLET BY 1 TABLET BY TAKE 1 MOUTH EVERY MOUTH EVERY TABLET BY DAY DAY MOUTH EVERY DAY levothyroxi levothyroxi No levothyrox [place] ne 200 mcg ne 200 mcg ine 200 Communi tablet TAKE tablet TAKE mcg tablet ty 1 TABLET BY 1 TABLET BY TAKE 1 Hospita MOUTH EVERY MOUTH EVERY TABLET BY l DAY DAY MOUTH Clinics EVERY DAY Linzess 290 Linzess 290 No Linzess [place] mcg capsule mcg capsule 290 mcg Communi Take 1 Take 1 capsule ty capsule capsule Take 1 Hospita every day every day capsule l by oral by oral every day Clin ics route as route as by oral needed for needed for route as 90 days. 90 days. needed for 90 days. metoprolol metoprolol No 1 Q1D metoprolol [place] succinate succinate succinate Communi ER 50 mg ER 50 mg ER 50 mg ty tablet,exte tablet,exte tablet,ext Hospita nded nded ended l release 24 release 24 release 24 Clinics hr Take 1 hr Take 1 hr Take 1 tablet tablet tablet every day every day every day by oral by oral by oral route for route for route for 30 days. 30 days. 30 days. pantoprazol pantoprazol No pantoprazo [place] e 40 mg e 40 mg le 40 mg Commu ni tablet,celine tablet,celine tablet,del ty yed release yed release ayed H ospita TAKE 1 TAKE 1 release l TABLET BY TABLET BY TAKE 1 Cli nics MOUTH EVERY MOUTH EVERY TABLET BY DAY DAY MOUTH EVERY DAY promethazin promethazin No 1 Q5H promethazi [place] e 25 mg e 25 mg ne 25 mg Commu ni tablet Take tablet Take tablet ty 1 tablet 1 tablet Take 1 Hospi ta every 4-6 every 4-6 tablet l hours by hours by every 4-6 Cl inics oral route oral route hours by as needed. as needed. oral route as needed. WelChol 625 WelChol 625 No WelChol [place] mg tablet mg tablet 625 mg Com reji Take 6 Take 6 tablet ty tablets tablets Take 6 Hospita every day every day tablets l by oral by oral every day Clin ics route for route for by oral 30 days. 30 days. route for 30 days. Immunizations Ordered Immunization Filled Immunization Date Status Commen ts Source Name Name influenza, influenza, 2020-02-14 Completed [place] Synthesioi ty injectable, injectable, 00:00:00 [facility] Cli nics quadrivalent, quadrivalent, preservative free preservative free influenza, influenza, 2017-12-19 Completed [place] Synthesioi ty injectable, injectable, 12:16:24 [facility] Cli nics quadrivalent, quadrivalent, preservative free preservative free Vital Signs Vital Name Observation Time Observation Value Comments Source BP Diastolic 2020-08-09 00:00:00 90 mm[Hg] [facility] s Height 2020-08-09 00:00:00 64 [in_i] [facility] s BMI (Body Mass 2020-08-09 00:00:00 33.5 kg/m2 [facility] s BP Systolic 2020-08-09 00:00:00 130 mm[Hg] [facility] s Body Weight 2020-08-09 00:00:00 3126.4 [oz_av] [facility] s Procedures Procedure Date / Time Performed Performing Clinician [facility] e Hernia Repair 2017-12-10 00:00:00 [facility] Partial Hysterectomy 2005-03-19 00:00:00 [facility] Oophorectomy [facility] Encounters Start End Encounter Admission Attending Care Care Encounter Source Date/Time Date/Time Type Type Clinicians Facility Department ID 2020-08-09 2020-08-09 Outpatient MAXIMO [facility] [id number] [place] 04:42:00 04:42:00 524 [facility] i ty Hospita l Clinics 2020-08-09 2020-08-09 Merissa Marte [facility] [place] - [place] 524 [place] 00:00:00 00:00:00 Jabari Nicholson MD: [address] [facility] [address], [facility] [address], H[facility] [place] [id number] JESUS , Ph. 2020-08-09 2020-08-09 Outpatient Merissa Nicholson [facility] [id number] 00:00:00 00:00:00 Rosanna [id number] 2020-08-06 2020-08-06 Office ANNE Damon [id number] 14:38:08 16:24:50 Visit Marcel Echavarria [id number] [place] [id number] Professio [id number] community health 092 [facility] 2020-08-06 2020-08-06 Outpatient Kyle DAMON [facility] [id number] Univers 14:40:00 14:40:00 ASH MARCEL [facility] 2020-07-23 2020-07-23 Outpatient JESUS_Jeniffer [facility] [id number] [place] 12:56:00 12:56:00 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 2020-02-10 2020-02-10 Outpatient JESUS_Jeniffer [facility] [id number] [place] 05:03:00 05:03:00 124 Commun i ty Hospita l Clinics 2019-06-17 2019-06-17 Outpatient Kyle PRITCHARD [facility] [id number] Univers 09:30:00 09:30:00 JIAN [facility] Results This patient has no known results.
--- NOTE | 2022-01-12 19:34 | ER ---
Nurse's Notes [facility] Name: Ofe Patel Age: 56 yrs Sex: Female : 1965 Arrival Date: 01/12/2022 Time: 17:57 Bed 20 Private MD: Diagnosis: Influenza due to identified novel influenza A virus Presentation: 01/12 18:17 Chief complaint: Patient states: Cough, Body aches, chills, fever, left ear ringing X 2 ld1 days. Coronavirus screen: Client presents with at least one sign or symptom that may indicate coronavirus-19. Standard/surgical mask placed on the client. Ebola Screen: No symptoms or risks identified at this time. Initial Sepsis Screen: Does the patient meet any 2 criteria? No. Patient's initial sepsis screen is negative. Does the patient have a suspected source of infection? No. Patient's initial sepsis screen is negative. Risk Assessment: Do you want to hurt yourself or someone else? Patient reports no desire to harm self or others. Onset of symptoms was January 12, 2022. 18:17 Method Of Arrival: Ambulatory ld1 18:17 Acuity: INGRID 4 ld1 Triage Assessment: 18:15 General: Appears in no apparent distress. comfortable, Behavior is calm, cooperative, ld1 appropriate for age. Pain: Denies pain. EENT: No signs and/or symptoms were reported regarding the EENT system. Neuro: Level of Consciousness is awake, alert, obeys commands, Oriented to person, place, time, situation. Cardiovascular: Capillary refill < 3 seconds Patient's skin is warm and dry. Respiratory: Airway is patent Respiratory effort is even, unlabored. GI: Abdomen is round non-distended. : No signs and/or symptoms were reported regarding the genitourinary system. Derm: No signs and/or symptoms reported regarding the dermatologic system. Musculoskeletal: No signs and/or symptoms reported regarding the musculoskeletal system. 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 - Social history:: Smoking status: Patient denies any tobacco usage or history of. Patient/guardian denies using alcohol. Screenin:38 Abuse screen: Denies threats or abuse. Denies injuries from another. Nutritional mb8 screening: No deficits noted. Tuberculosis screening: No symptoms or risk factors identified. Fall Risk None identified. Assessment: 18:37 General: Appears uncomfortable, Behavior is calm, cooperative, appropriate for age. mb8 Pain: Denies pain. Respiratory: Reports cough that is hacking. Respiratory: Reports. GI: Patient currently denies diarrhea, nausea, vomiting. EENT: Reports nasal discharge. 19:17 General: Appears comfortable, Behavior is calm, cooperative, appropriate for age. Pain: aa9 Denies pain. Neuro: Level of Consciousness is awake, alert, obeys commands, Oriented to person, place, time, situation. Cardiovascular: Patient's skin is warm and dry. Respiratory: Reports cough that is hacking, Airway is patent Trachea midline Respiratory effort is even, unlabored. GI: No signs and/or symptoms were reported involving the gastrointestinal system. : No signs and/or symptoms were reported regarding the genitourinary system. EENT: Reports nasal congestion. Derm: No signs and/or symptoms reported regarding the dermatologic system. Vital Signs: 18:15 BP 191 / 89; Pulse 100; Resp 18; Temp 99.1(O); Pulse Ox 98% on R/A; Weight 81.65 kg; ld1 Height 5 ft. 4 in. (162.56 cm); Pain 0/10; 18:36 BP 156 / 77; Pulse 99; Resp 20; Pulse Ox 97% on R/A; mb8 19:18 BP 158 / 83; Pulse 99; Resp 17 S; Pulse Ox 96% on R/A; Pain 0/10; aa9 18:15 Body Mass Index 30.90 (81.65 kg, 162.56 cm) ld1 ED Course: 17:57 Patient arrived in ED. rg4 18:00 Korin New FNP-C [facility]. kb 18:00 Mitch Patel MD is Attending Physician. kb 18:15 Arm band placed on right wrist. ld1 18:18 Triage completed. ld1 18:29 Julio Cesar Gomez, RN is Primary Nurse. mb8 18:38 Patient has correct armband on for positive identification. Bed in low position. Call mb8 light in reach. Side rails up X2. Client placed on continuous cardiac and pulse oximetry monitoring. NIBP monitoring applied. 18:38 No provider procedures requiring assistance completed. Patient did not have IV access mb8 during this emergency room visit. Administered Medications: No medications were administered Medication: 18:38 VIS not applicable for this client. mb8 Outcome: 19:33 Discharge ordered by . kb 19:38 Discharged to home ambulatory, with family. aa9 19:38 Condition: stable 19:38 Discharge instructions given to patient, family, Instructed on discharge instructions, follow up and referral plans. medication usage, Demonstrated understanding of instructions, follow-up care, medications, Prescriptions given X 1. 19:39 Patient left the ED. aa9 Signatures: Korin New FNP-C FNP-Hali Rodriguez rg4 Kitty Green, RN RN ld1 Prerna Schneider, ANICETO RN aa9 Julio Cesar Gomez, RN RN mb8
--- NOTE | 2022-01-12 19:34 | EDPHYS ---
Physician Documentation [facility] Name: Ofe Patel Age: 56 yrs Sex: Female : 1965 Arrival Date: 01/12/2022 Time: 17:57 Bed 20 Private MD: MARY Physician Mitch Patel HPI: 01/12 19:58 This 56 yrs old Female presents to ER via Ambulatory with complaints of Body kb Aches, Cough. 19:58 The patient or guardian reports cough, that is intermittent, described as mild, flu kb symptoms, low-grade fever, myalgias. Onset: The symptoms/episode began/occurred yesterday. Severity of symptoms: At their worst the symptoms were moderate, in the emergency department the symptoms are unchanged. Modifying factors: The symptoms are alleviated by nothing, the symptoms are aggravated by nothing. Associated signs and symptoms: Pertinent positives: fever, rhinorrhea, Pertinent negatives: chest pain, diarrhea, ear ache, nausea, sore throat, vomiting. The patient has not experienced similar symptoms in the past. The patient has not recently seen a physician. Pt reports cough, congestion, fever and bodyaches since yesterday. 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 - Social history:: Smoking status: Patient denies any tobacco usage or history of. Patient/guardian denies using alcohol. ROS: 19:58 Abdomen/GI: Negative for abdominal pain, nausea, vomiting, diarrhea, and constipation. kb 19:58 Constitutional: Positive for body aches, chills, fatigue, fever, malaise. 19:58 ENT: Positive for rhinorrhea, sinus congestion. 19:58 Respiratory: Positive for cough, Negative for dyspnea on exertion, hemoptysis, orthopnea, pleurisy, shortness of breath, sputum production, wheezing. 19:58 All other systems are negative. Exam: 19:58 Constitutional: This is a well developed, well nourished patient who is awake, alert, kb and in no acute distress. Head/Face: Normocephalic, atraumatic. ENT: Moist Mucous membranes Cardiovascular: Regular rate and rhythm with a normal S1 and S2. No gallops, murmurs, or rubs. No pulse deficits. Respiratory: Respirations even and unlabored. No increased work of breathing. Talking in full sentences Skin: Warm, dry with normal turgor. Normal color. MS/ Extremity: Pulses equal, no cyanosis. Neurovascular intact. Full, normal range of motion. Neuro: Awake and alert, GCS 15, oriented to person, place, time, and situation. Moves all extremities. Normal gait. Psych: Awake, alert, with orientation to person, place and time. Behavior, mood, and affect are within normal limits. Vital Signs: 18:15 BP 191 / 89; Pulse 100; Resp 18; Temp 99.1(O); Pulse Ox 98% on R/A; Weight 81.65 kg; ld1 Height 5 ft. 4 in. (162.56 cm); Pain 0/10; 18:36 BP 156 / 77; Pulse 99; Resp 20; Pulse Ox 97% on R/A; mb8 19:18 BP 158 / 83; Pulse 99; Resp 17 S; Pulse Ox 96% on R/A; Pain 0/10; aa9 18:15 Body Mass Index 30.90 (81.65 kg, 162.56 cm) ld1 MDM: 18:20 Patient medically screened. [facility] 19:58 Data reviewed: vital signs, nurses notes. Data interpreted: Pulse oximetry: on room air kb is 96 %. Interpretation: normal. Counseling: I had a detailed discussion with the patient and/or guardian regarding: the historical points, exam findings, and any diagnostic results supporting the discharge/admit diagnosis, lab results, the need for outpatient follow up, a family practitioner, to return to the emergency department if symptoms worsen or persist or if there are any questions or concerns that arise at home. 01/12 18:30 Order name: Flu; Complete Time: 19:14 kb 01/12 18:30 Order name: COVID-19 SARS RT PCR (Document "Date of Onset" if Symptomatic); Complete kb Time: 19:30 Administered Medications: No medications were administered Disposition Summary: 01/12/22 19:33 Discharge Ordered Location: Home kb Condition: Stable kb Diagnosis - Influenza due to identified novel influenza A virus kb Followup: kb - With: Emergency Department - When: As needed - Reason: Worsening of condition Followup: kb - With: Private Physician - When: 2 - 3 days - Reason: Recheck today's complaints, Continuance of care, Re-evaluation by your physician Discharge Instructions: - Discharge Summary Sheet kb - Influenza, Adult, [id number] kb Forms: - Medication Reconciliation Form kb - Thank You Letter kb - Antibiotic Education kb - Prescription Opioid Use kb - Work release form aa9 Prescriptions: - Tamiflu 75 mg Oral Capsule - take 1 tablet by ORAL route every 12 hours for 5 days; 10 tablet; Refills: 0, kb Product Selection Permitted Signatures: Dispatcher [employer] Korin Godoy, SUBSTATION SUPERVISOR-C SUBSTATION SUPERVISOR-Mitch Barrera MD MD cha Dibbern, Lauren, RN RN ld1
[2022-01-12 20:10] VITALS: TEMP 99.1
[2022-01-12 20:12] VITALS: BP 158/83; O2SAT 96
== END 2022-01-12 19:39 | disposition home or self-care (01) ==
LOC: ER 17:54
DX: J10.1 Influenza due to other identified influenza virus with other respiratory manifestations (principal); Z20.822 Contact with and (suspected) exposure to COVID-19; I10 Essential (primary) hypertension
CPT/HCPCS: 87804; 99282; U0003